=== PATIENT | female | born 1955 | race Caucasian/White ===

== ENCOUNTER 2019-07-28 10:27 | Outpatient (CLI) | payer OTHER, SELFPAY | END 2019-07-28 10:28 | disposition home or self-care (01) | PROVIDERS: Visit Provider Internal Medicine Pulmonary Disease | DX: J44.9 Chronic obstructive pulmonary disease, unspecified (principal) | CPT/HCPCS: 94060; 94726; 94729 ==

== ENCOUNTER 2020-08-09 10:59 | Outpatient (CLI) | payer OTHER, SELFPAY ==
[2020-08-09] VITALS (9 sets, daily range): PULSE 57–103; O2SAT 82–93
[2020-08-09 11:15] LABS: Base Excess ABG 11.2 mmol/L (0-2); Oxygen Content ABG 18.1 %vol (16.0-22.0); Oxyhemoglobin 92.4 % (94-100); PO2 ABG 68.8 mmHg (80-90); Total Hemoglobin 13.9 g/dL; pH ABG 7.24 (7.35-7.45)
[2020-08-09 11:26] LABS: Device NASAL CANNULA; Modified Allen's Test Pass; Site Drawn LEFT RADIAL
--- NOTE | 2020-08-09 15:15 | HOMEO2EVAL ---
Home Oxygen Evaluation RC: Home Oxygen (O2) Evaluation Start: 08/09/20 12:43 Freq: Status: Active Protocol: RPE Activity Type Activity Date Activity User E-Sign Co-Sign Detail Recorded Client Recorded Date Recorded By Document 08/09/20 11:12 EVONNE [id number] 08/09/20 15:10 EVONNE Document 08/09/20 11:14 EVONNE [id number] 08/09/20 15:10 EVONNE Document 08/09/20 11:16 EVONNE [id number] 08/09/20 15:10 EVONNE Document 08/09/20 11:18 EVONNE [id number] 08/09/20 15:10 EVONNE Document 08/09/20 11:20 EVONNE [id number] 08/09/20 15:10 EVONNE Document 08/09/20 11:22 EVONNE [id number] 08/09/20 15:10 EVONNE Document 08/09/20 11:25 EVONNE [id number] 08/09/20 15:10 EVONNE Document 08/09/20 11:28 EVONNE [id number] 08/09/20 15:10 EVONNE Document 08/09/20 11:30 EVONNE [id number] 08/09/20 15:10 EVONNE 08/09/20 08/09/20 08/09/20 11:12 11:14 11:16 Home O2 Evaluation Test Phase Resting Resting Resting Oxygen Delivery Room Air Nasal Cannula Nasal Cannula Oxygen Flow Rate (L/min) 1 2 Pulse Oximetry (90-100 %) 82 L 85 L 86 L Pulse Rate (60-100 beats/min) 101 H 102 H 103 H Activity Tolerance Good Fair Fair Rating of Perceived Dyspnea (PD) +1 Mild, +1 Mild, +2 Mild, Some Noticeable to Noticeable to Difficulty, the Participant the Participant Noticeable to but Not to an but Not to an the Observer Observer Observer Rate of Perceived Exertion (PE) 11 Fairly light 11 Fairly light 11 Fairly light Ambulation Distance (feet) Home Oxygen Evaluation Comments Treatment Charges O2 Evaluation - Outpatient 08/09/20 08/09/20 08/09/20 11:18 11:20 11:22 Home O2 Evaluation Test Phase Resting Exercise Exercise Oxygen Delivery Nasal Cannula Nasal Cannula Nasal Cannula Oxygen Flow Rate (L/min) 3 3 4 Pulse Oximetry (90-100 %) 93 86 L 85 L Pulse Rate (60-100 beats/min) 101 H 92 88 Activity Tolerance Fair Fair Fair Rating of Perceived Dyspnea (PD) +2 Mild, Some +2 Mild, Some +3 Moderate Difficulty, Difficulty, Difficulty, But Noticeable to Noticeable to Can Continue the Observer the Observer Rate of Perceived Exertion (PE) 11 Fairly light 12 13 Somewhat Hard Ambulation Distance (feet) 60 30 Home Oxygen Evaluation Comments Titrated 02 to desaturation on 3lpm then 4lpm.will walked 60 ft. increase O2 to Sp02 86%.will 5 lpm. increase to 4 lpm Treatment Charges 08/09/20 08/09/20 08/09/20 11:25 11:28 11:30 Home O2 Evaluation Test Phase Exercise Exercise Exercise Oxygen Delivery Nasal Cannula Nasal Cannula Nasal Cannula Oxygen Flow Rate (L/min) 5 6 7 Pulse Oximetry (90-100 %) 86 L 85 L 84 L Pulse Rate (60-100 beats/min) 57 L 58 L 60 Activity Tolerance Fair Fair Poor Rating of Perceived Dyspnea (PD) +3 Moderate +3 Moderate +3 Moderate Difficulty, But Difficulty, But Difficulty, But Can Continue Can Continue Can Continue Rate of Perceived Exertion (PE) 13 Somewhat 13 Somewhat 13 Somewhat Hard Hard Hard Ambulation Distance (feet) 30 60 30 Home Oxygen Evaluation Comments desaturation on desaturation on test ended. 5 lpm. will 6 lpm. will unable to increase to 6 increase to 7 maintain lpm lpm adequate saturation on 7 lpm n/c. Audible wheezing. Treatment Charges
== END 2020-08-09 11:00 | disposition home or self-care (01) ==
PROVIDERS: PCP Family Medicine; Visit Provider Internal Medicine Pulmonary Disease
DX: J44.9 Chronic obstructive pulmonary disease, unspecified (principal); R06.00 Dyspnea, unspecified
CPT/HCPCS: 36600; 82805; 94618

== ENCOUNTER 2020-10-24 11:13 | Outpatient (CLI) | payer MEDICARE, SELFPAY ==
[2020-10-24] VITALS (7 sets, daily range): PULSE 82–96; O2SAT 79–93
--- NOTE | 2020-10-24 12:30 | HOMEO2EVAL ---
Evaluation was performed at [facility] Home Oxygen Evaluation RC: Home Oxygen (O2) Evaluation Start: 10/24/20 12:13 Freq: Status: Active Protocol: RPE Activity Type Activity Date Activity User E-Sign Co-Sign Detail Recorded Client Recorded Date Recorded By Document 10/24/20 11:25 SJB [id number] 10/24/20 12:30 SJB Document 10/24/20 11:27 SJB [id number] 10/24/20 12:30 SJB Document 10/24/20 11:28 SJB [id number] 10/24/20 12:30 SJB Document 10/24/20 11:29 SJB [id number] 10/24/20 12:30 SJB Document 10/24/20 11:30 SJB [id number] 10/24/20 12:30 SJB Document 10/24/20 11:32 SJB [id number] 10/24/20 12:30 SJB Document 10/24/20 11:33 SJB [id number] 10/24/20 12:30 SJB 10/24/20 10/24/20 10/24/20 11:25 11:27 11:28 Home O2 Evaluation Test Phase Resting Resting Resting Oxygen Delivery Room Air Oxymizer Oxymizer Oxygen Flow Rate (L/min) 2 3 Pulse Oximetry (90-100 %) 79 L 81 L 86 L Pulse Rate (60-100 beats/min) 95 95 96 Activity Tolerance Rating of Perceived Dyspnea (PD) +2 Mild, Some +2 Mild, Some +2 Mild, Some Difficulty, Difficulty, Difficulty, Noticeable to Noticeable to Noticeable to the Observer the Observer the Observer Rate of Perceived Exertion (PE) Ambulation Distance (feet) Home Oxygen Evaluation Comments WILL START PATIENT ON OXYGEN AT 2 LPM Treatment Charges O2 Evaluation - Outpatient 10/24/20 10/24/20 10/24/20 11:29 11:30 11:32 Home O2 Evaluation Test Phase Resting Exercise Exercise Oxygen Delivery Oxymizer Oxymizer Oxymizer Oxygen Flow Rate (L/min) 4 4 6 Pulse Oximetry (90-100 %) 91 87 L 93 Pulse Rate (60-100 beats/min) 88 86 94 Activity Tolerance Good Good Rating of Perceived Dyspnea (PD) +2 Mild, Some +2 Mild, Some +2 Mild, Some Difficulty, Difficulty, Difficulty, Noticeable to Noticeable to Noticeable to the Observer the Observer the Observer Rate of Perceived Exertion (PE) 12 12 Ambulation Distance (feet) 75 150 Home Oxygen Evaluation Comments WILL BEGIN EXERCISE NOW Treatment Charges 10/24/20 11:33 Home O2 Evaluation Test Phase Exercise Oxygen Delivery Oxymizer Oxygen Flow Rate (L/min) 6 Pulse Oximetry (90-100 %) 93 Pulse Rate (60-100 beats/min) 82 Activity Tolerance Good Rating of Perceived Dyspnea (PD) +2 Mild, Some Difficulty, Noticeable to the Observer Rate of Perceived Exertion (PE) 12 Ambulation Distance (feet) 300 Home Oxygen Evaluation Comments PT WALKED PUSHING WHEELCHAIR APPROX 300 FT. PT WAS INCREASED TO 6 LPM USING OXYMIZER NASAL CANNUAL AND MAINTAINED AN SP02 OFBETWEEN 92-93%. TOLERATED WELL, TALKING THE WHOLE TIME. Treatment Charges
== END 2020-10-24 11:14 | disposition home or self-care (01) ==
LOC: CHSCARD 11:18
PROVIDERS: PCP Family Medicine; Visit Provider Internal Medicine Pulmonary Disease
DX: R06.02 Shortness of breath (principal)
CPT/HCPCS: 94618

== ENCOUNTER 2021-04-11 09:02 | Inpatient (IN) | payer MEDICARE, SELFPAY ==
[2021-04-11] VITALS (16 sets, daily range): BP systolic 136–189; BP diastolic 73–108; PULSE 92–105; RESP 20–28; TEMP 36.3–36.6; O2SAT 88–100; BMI 18.6
--- NOTE | ~2021-04-11 | XR_ITS ---
XR chest 2V 04/12/2021 13:08 Indication: Hypoxia. Decreased oxygen with exertion. Cough. Procedure: 2 view chest Comparison: Comparison to multiple prior studies sequentially, with oldest reviewed study dated 06/10. Findings: Heart size normal. Bibasilar airspace disease may represent atelectasis or pneumonia. Small pleural effusions. The lungs are hyperinflated which is consistent with, but not diagnostic of chron ic obstructive pulmonary disease. Impression: 1: Bibasilar airspace disease, atelectasis versus pneumonia. 2: Small pleural effusions. Reviewed, dictated and finalized at location A. ITY TECH Impression: 1: Bibasilar airspace disease, atelectasis versus pneumonia. 2: Small pleural effusions.
--- NOTE | ~2021-04-11 | CT_ITS ---
EXAMINATION: CTA chest PE protocol EXAM DATE: 04/11/2021 11:09 INDICATION: Dyspnea with elevated D-dimer dyspnea, SOB x2wks, elevated D-dimer 0.97, emphysema. TECHNIQUE: Spiral CTA of the chest (pulmonary arteries) was performed with 100 cc Omnipaque 350 intr avenous contrast injection. Images were acquired during the pulmonary arterial phase. Coronal maxi mum intensity projection 3D-reconstructions were created by the technologist on dedicated workstation . Axial, coronal and sagittal reformatted images were reviewed. The dose-length product (DLP) for t his examination was 150.04 mGy-cm. The exposure was tailored according to patient size (auto mA exp osure control), and iterative reconstruction (ASIR) was used as additional dose reduction technique. Comparison is made to prior examination from 2013. FINDINGS: Pulmonary arteries are well opacified and without intraluminal filling defects. No thora cic aortic dissection. There is moderate emphysema and hyperinflation. There is small amount of endo bronchial debris in the dependent aspect. Linear lingular and left basilar subsegmental scarring or a telectasis. The lungs are otherwise clear. Small left pleural effusion. There is no mediastinal, hi lar or axillary lymphadenopathy. There is no pneumothorax. Heart normal in size. There is moder ate coronary arterial calcification, arterial sclerosis. Upper abdomen is unremarkable. There is t horacic spondylosis without osteoblastic or osteolytic lesions identified. IMPRESSION: 1. No pulmonary emboli. 2. Linear left basilar scarring/atelectasis. 3. Small left pleural effusion. 4. Moderate emphysema. 5. Small endobronchial debris. Reviewed, dictated and finalized at location A. UDER
--- NOTE | 2021-04-11 09:07 | ECG_ITS ---
Measurements Intervals [place] Rate: 99 P: 81 [place]: 159 QRS: 68 QRSD: 72 T: 76 QT: 325 QTc: 418 Interpretive Statements SINUS RHYTHM POSSIBLE RIGHT ATRIAL ENLARGEMENT POSSIBLE LEFT ATRIAL ENLARGEMENT RSR' IN V1 OR V2, PROBABLY NORMAL VARIANT BORDERLINE R WAVE PROGRESSION, ANTERIOR LEADS BASELINE WANDER- V2-V4, V6 BORDERLINE ECG Electronically Signed On 04-11-2021 9:49:45 MIXING MACHINE FEEDER by Ronny Boland D.O.
[2021-04-11] MEDS: IPRATROPIUM 0.5 MG/ALBUTEROL SULFATE 2.5 MG AMPUL.NEB 3 ML INHALATION ×3 (09:15→17:34)
[2021-04-11] MEDS: methylPREDNISolone SOD SUCC 125 MG VIAL IV PUSH (09:35)
[2021-04-11 09:45] LABS: Add Urine Microscopic? YES; Appearance Urine Clear (Clear); Bilirubin Urine Negative (Negative); Blood Urine Negative (Negative); Color Urine Light Yellow (Yellow); Glucose Urine UA Negative (Negative); Ketones Urine Negative (Negative); Leukocyte Esterase Ur Negative (Negative); Nitrate Urine Negative (Negative); Protein Urine Trace (Negative); Specific Grav Ur 1.015 (1.010-1.020); Urobilinogen Urine 0.2 mg/dL (0.2-1.0)
[2021-04-11 10:00] LABS: Base Excess ABG 16.2 mmol/L (0-2); HCO3 ABG 46.6 mmol/L (23-29); Oxygen Content ABG 18.7 %vol (16.0-22.0); Oxygen Saturation ABG 97.4 % (95-97); Oxyhemoglobin 96.5 % (94-100); PO2 ABG 103.1 mmHg (80-90); Total Hemoglobin 13.7 g/dL (12.0-18.0); pH ABG 7.34 (7.35-7.45)
[2021-04-11 10:01] LABS: RBC Urine None seen /hpf (0-2); Squamous Epithelial Cell Urine Rare /hpf (Few); WBC Urine None seen /hpf (0-3)
[2021-04-11 10:02] LABS: Bacteria Urine Trace /hpf
[2021-04-11 10:03] LABS: Basophils Absolute Auto 0.04 K/mm3 (0.00-0.10); Basophils Percent Auto 0.8 % (0.0-1.0); Device NASAL CANNULA; Eosinophils Absolute Auto 0.12 K/mm3 (0.02-0.50); Eosinophils Percent Auto 2.5 % (1.0-6.0); Hematocrit 45.9 % (35.0-42.0); Hemoglobin 14.1 g/dL (11.7-13.8); Immature Granulocyte Absolute 0.01 K/mm3 (0.00-0.00); Immature Granulocyte Percent A 0.2 % (0.0-0.0); Lymphocytes Absolute Auto 0.51 K/mm3 (1.10-4.50); Lymphocytes Percent Auto 10.8 % (18.0-42.0); Mean Corpuscular HGB Conc 30.7 g/dL (32.0-36.0); Mean Corpuscular Hemoglobin 31.5 pg (27.0-31.0); Mean Corpuscular Volume 102.7 fL (78.0-102.0); Mean Platelet Volume 10.8 fl (9.2-11.8); Modified Allen's Test Pass; Monocytes Absolute Auto 0.61 K/mm3 (0.10-0.90); Monocytes Percent Auto 12.9 % (2.0-11.0); Neutrophils Absolute Auto 3.4 K/mm3 (1.7-7.2); Neutrophils Percent Auto 72.8 % (50.0-70.0); PCO2 ABG 88.5 mmHg (35-45); Platelet Count Result 223 K/mm3 (150-420); Red Blood Count 4.47 M/mm3 (4.20-5.40); Red Cell Distribution Width 11.9 % (11.6-14.4); Site Drawn RIGHT RADIAL; White Blood Count 4.7 K/mm3 (4.8-10.8)
[2021-04-11 10:13] LABS: Influenza A QL RT-PCR Negative (Negative); Influenza B QL RT-PCR Negative (Negative); SARS-CoV-2 RNA PCR Negative (Negative)
[2021-04-11 10:15] LABS: Partial Thromboplastin Time 29.3 SEC (23.90-30.70)
[2021-04-11 10:18] LABS: D Dimer 0.97 mg/L (0.19-0.50)
[2021-04-11 10:22] LABS: Alanine Aminotransferase 31 U/L (14-59); Albumin Level 4.7 g/dL (3.4-5.0); Alkaline Phosphatase 92 U/L (46-116); Aspartate Amino Transferase 26 U/L (15-37); Bilirubin,Total 0.6 mg/dL (0.00-1.00); Blood Urea Nitrogen 7 mg/dL (7-18); Calcium 9.5 mg/dL (8.5-10.1); Chloride 83 mmol/L (98-108); Estimated CRCL calculation 66 ml/min; Estimated Glomerular Filt Rate > 60; Glucose 120 mg/dL (70-99); Magnesium 1.9 mg/dL (1.8-2.4); NT Pro B Type Natriuretic Pept 177 pg/mL (0-125); Osmolality Calculated 273 mOsm/kg (285-295); Potassium 3.9 mmol/L (3.5-5.1); Sodium 132 mmol/L (136-145); Total Protein 8.9 g/dL (6.4-8.2); Troponin I 25.3 ng/L (0.00-60.4)
[2021-04-11 10:27] LABS: Carbon Dioxide > 45 mmol/L (21-32)
[2021-04-11] MEDS: SODIUM CHLORIDE 0.9% IV 1,000 ML 150 ML IV CONT (11:24)
--- NOTE | 2021-04-11 11:34 | ED.SOB ---
HPI - SOB/Dyspnea General Chief Complaint: Shortness of Breath/Dyspnea Stated Complaint: AMBULANCE Source: patient and EMS Mode of arrival: EMS Limitations: no limitations History of Present Illness HPI Narrative: this is 65-year-old female with a history of COPD and hypertension presents via EMS after she called because of increasing shortness of breath. The patient has been having increasing shortness of breath over the last 2 weeks and gradually has intensified is not vaccinated with COVID but has minimal contact according to patient, currently there is some chest congestion with no audible wheezing and mild nonproductive cough with no fevers no chills no chest pain no abdominal pain no nausea vomiting. MD elicited complaint: shortness of breath Pertinent past history: COPD Onset (ago): week(s) Context: anxiety Timing: intermittent Severity: moderate Exacerbating factors: nothing Relieving factors: oxygen, bronchodilators and medication Related Data Home Medications Medication Instructions Recorded Confirmed budesonide 0.5 mg INHALATION DAILY 04/11/21 04/11/21 Allergies Allergy/AdvReac Type Severity Reaction Status Date / Time No Known Allergies Allergy Verified 03/19/21 12:04 Review of Systems Review of Systems: All systems reviewed & are unremarkable except as noted in HPI and below PMFSH Past Medical History Medical History COPD (chronic obstructive pulmonary disease) Encounter for vaccination Hypertension Surgical History Surgical History No history of previous surgery Family History Family History Other Family history of type 2 diabetes mellitus Social History Social History Smoking status: Former smoker Tobacco type: cigarettes Additional smoking assessment comments: Quit 2015. 40 pack-year history. Exam Const: General: no acute distress Orientation/consciousness: patient oriented x3 HENMT: Head: normal to inspection Eyes: Conjunctivae: conjunctivae normal Pupils: Equal, round and reactive pupils present EOM: EOMs intact bilaterally Direct Ophthalmoscopy: no photophobia Neck: Neck: normal visual inspection, no lymphadenopathy and no meningeal signs Chest: Chest palpation & inspection: normal inspection of the chest Resp: Effort & Inspection: normal respiratory effort Auscultation: diminished lung sounds Cardio: Rate: regular rate Rhythm: regular rhythm GI: GI Palp: Yes Soft to palpation : General: Yes no CVA tenderness Urinary Catheter: Urinary Catheter: patent and draining Back/Spine/Pelvis: Back: no CVA tenderness Skin: General skin exam: normal color Rashes: no rashes Neuro: General: patient oriented x3 and moves all extremities Extrem: General: normal to inspection and no pedal edema Psych: Mental Status: mental status grossly normal Affect: normal affect Course Course Emergency Course: Patient presents via EMS with increasing shortness of breath a chest CTA was ordered secondary to elevated D-dimer which shows no pulmonary embolism does show moderate emphysema with a small left pleural effusion, labs were reviewed with patient patient was given nebulizer treatment started on oxygen and given Solu-Medrol IV. Vital Signs Vital signs: Vital Signs Temperature 36.6 C 04/11/21 09:02 Pulse Rate 98 04/11/21 09:02 Respiratory Rate 22 H 04/11/21 09:02 Blood Pressure 184/108 H 04/11/21 09:02 Pulse Oximetry 96 04/11/21 09:02 Temperature 36.4 C 04/11/21 10:31 Pulse Rate 102 H 04/11/21 10:31 Respiratory Rate 22 H 04/11/21 10:31 Blood Pressure 189/89 H 04/11/21 10:31 Pulse Oximetry 96 04/11/21 10:06 MDM - SOB/Dyspnea Lab Data Result diagrams: 04/11/21 09:39 04/11/21 09:39
--- NOTE | 2021-04-11 12:15 | PC.NURSE ---
Patient admitted to room 205 from ED for observation following COPD exacerbation.
--- NOTE | 2021-04-11 12:23 | PM.IMHP ---
H&P: HPI History of Present Illness Date/Time: 04/11/21 12:23 this is a 65-year-old female presented to our emergency department with complaints of worsening shortness of breath .patient has a past medical history of end-stage. At COPD and hypertension patient for approximately 1 week her shortness of breath has become recently worse patient notes that while she was at home she was unable to ambulate from her chair to the restroom which indicated she needs to come to our emergency department. Patient does use a nebulizer at home she notes she did not increase the use of her nebulizer while at home. Vital signs 162/81, 96, 20, 97.9, 92% nasal cannula 3 L, WBCs 4.7, hemoglobin 14.1, hematocrit 45.9, platelets 223, D-dimer 0.97, pH 7.34, CO2 88.5, O2 103.1 bicarb 46.6, sodium 132, potassium 3.9, creatinine 0.49, BUN 7, glucose 120, liver function test within normal limits, troponin 25.3, BUN 177, Covid and influenza negative, CTA negative for PE indicate moderate emphysema, EKG sinus rhythm with a heart rate of 99. Patient notes that her condition has improved she still experience shortness of breath. Admitted for COPD exercabation Chief Complaint: Shortness of breath Review of Systems Review of Systems: A 14 organ system Review of Systems was performed and pertinent positives included in the HPI, otherwise remaining ROS is negative. [facility] Past Medical History Medical History COPD (chronic obstructive pulmonary disease) Encounter for vaccination Hypertension Surgical History Surgical History No history of previous surgery Family History Family History Other Family history of type 2 diabetes mellitus Social History Social History Smoking status: Former smoker Tobacco type: cigarettes Second hand tobacco smoke exposure: Yes Additional smoking assessment comments: Quit 2015. 40 pack-year history. Alcohol intake: current Drinks per week: 12 Substance use: never Spiritual care concerns: No Meds Home Medications and Allergies Home Medications Medication Instructions Recorded Confirmed Type albuterol sulfate 90 mcg/actuation 2 inh INHALATION Q4H PRN #8.5 g 03/19/21 04/11/21 Rx aerosol inhaler diltiazem HCl 420 mg capsule,24 420 mg PO DAILY #90 cap 03/19/21 04/11/21 Rx hr,extended release formoterol fumarate 20 mcg/2 mL 20 mcg INHALATION BID #120 ml 03/19/21 04/11/21 Rx solution for nebulization losartan 100 mg tablet See Rx Instructions .ROUTE 03/19/21 04/11/21 Rx .COMPLEX #90 tablet theophylline 200 mg 200 mg PO DAILY #60 cap 03/19/21 04/11/21 Rx capsule,extended release 24 hr umeclidinium 62.5 mcg/actuation 1 inh INHALATION DAILY #30 ea 03/19/21 04/11/21 Rx blister powder for inhalation budesonide 0.5 mg INHALATION DAILY 04/11/21 04/11/21 History Allergies Allergy/AdvReac Type Severity Reaction Status Date / Time No Known Allergies Allergy Verified 03/19/21 12:04 Vital Signs Vital Signs - 24 hr 04/11/21 09:02 04/11/21 09:15 04/11/21 09:16 Temperature 97.8 F Pulse Rate 98 100 98 Respiratory Rate 22 H 28 H Blood Pressure 184/108 H Pulse Oximetry 96 100 04/11/21 09:23 04/11/21 10:06 04/11/21 10:31 Temperature 97.6 F Pulse Rate 99 102 H Respiratory Rate 22 H 22 H Blood Pressure 189/89 H Pulse Oximetry 100 96 04/11/21 11:41 Temperature 97.6 F Pulse Rate 96 Respiratory Rate 22 H Blood Pressure 170/80 H Pulse Oximetry 93 Exam Narrative: GENERAL: This is a well-nourished, well-developed patient, in no apparent distress. HEAD: normocephalic, atraumatic. EYES: PERRL. Sclera clear/white. Vision is grossly intact. EARS: External ears normal, auditory canals clear and without drainage, TMs normal without perforation. Heari
[2021-04-11] MEDS: SODIUM CHLORIDE 0.9% IV 1,000 ML 100 ML IV CONT ×2 (13:08→20:54)
[2021-04-11] MEDS: BENZONATATE 100 MG CAPSULE 200 MG PO ×2 (13:09→16:59)
[2021-04-11] MEDS: methylPREDNISolone SOD SUCC 40 MG VIAL IV PUSH ×2 (15:18→21:30)
--- NOTE | 2021-04-11 16:57 | PC.NURSE ---
Patient is voiding but missing the collection hat. Unable to measure accurately.
[2021-04-11] MEDS: ENOXAPARIN 40 MG/0.4 ML SYRINGE SUB-Q (16:59)
[2021-04-11] MEDS: guaiFENesin 12 HR 600 MG TABCR 1200 MG PO (21:30)
[2021-04-12] VITALS (9 sets, daily range): BP systolic 163–165; BP diastolic 77–100; PULSE 83–108; RESP 18–22; TEMP 36.1–36.3; O2SAT 90–100
[2021-04-12] MEDS: IPRATROPIUM 0.5 MG/ALBUTEROL SULFATE 2.5 MG AMPUL.NEB 3 ML INHALATION ×3 (00:27→12:16)
[2021-04-12] MEDS: methylPREDNISolone SOD SUCC 40 MG VIAL IV PUSH ×2 (03:51→08:28)
[2021-04-12 05:29] LABS: Hematocrit 37.4 % (35.0-42.0); Hemoglobin 11.9 g/dL (11.7-13.8); Mean Corpuscular HGB Conc 31.8 g/dL (32.0-36.0); Mean Corpuscular Hemoglobin 32.8 pg (27.0-31.0); Mean Platelet Volume 10.7 fl (9.2-11.8); Platelet Count Result 184 K/mm3 (150-420); Red Blood Count 3.63 M/mm3 (4.20-5.40); Red Cell Distribution Width 11.9 % (11.6-14.4); White Blood Count 2.6 K/mm3 (4.8-10.8)
[2021-04-12 05:57] LABS: Alanine Aminotransferase 25 U/L (14-59); Albumin Level 3.3 g/dL (3.4-5.0); Alkaline Phosphatase 66 U/L (46-116); Anion Gap 0 mmol/L (8-16); Aspartate Amino Transferase 17 U/L (15-37); Bilirubin,Total 0.2 mg/dL (0.00-1.00); Blood Urea Nitrogen 8 mg/dL (7-18); Calcium 8.4 mg/dL (8.5-10.1); Carbon Dioxide 44 mmol/L (21-32); Chloride 93 mmol/L (98-108); Estimated CRCL calculation 67 ml/min; Estimated Glomerular Filt Rate > 60; Glucose 233 mg/dL (70-99); Osmolality Calculated 289 mOsm/kg (285-295); Potassium 3.8 mmol/L (3.5-5.1); Sodium 137 mmol/L (136-145); Total Protein 6.7 g/dL (6.4-8.2)
[2021-04-12 06:01] LABS: Band Neutrophils Percent 1 % (0-6); Lymphocytes Absolute Manual 0.15 K/mm3 (1.1-4.5); Lymphocytes Percent Manual 6 % (18-44); Monocytes Percent Manual 4 % (3-9); Neutrophils Absolute Manual 2.34 K/mm3 (1.7-7.2); Neutrophils Percent Manual 89 % (46-73); Platelet Estimate Adequate (Adequate); Total Cells Counted 100
[2021-04-12] MEDS: SODIUM CHLORIDE 0.9% IV 1,000 ML 100 ML IV CONT (06:28)
[2021-04-12 08:06] LABS: Base Excess ABG 14.8 mmol/L (0-2); Oxygen Content ABG 17.5 %vol (16.0-22.0); Oxygen Saturation ABG 91.4 % (95-97); Oxyhemoglobin 90.9 % (94-100); PO2 ABG 62.3 mmHg (80-90); Total Hemoglobin 13.7 g/dL (12.0-18.0); pH ABG 7.37 (7.35-7.45)
[2021-04-12 08:12] LABS: PCO2 ABG 78.2 mmHg (35-45)
[2021-04-12 08:13] LABS: Device NASAL CANNULA; Modified Allen's Test Pass; Site Drawn RIGHT RADIAL
[2021-04-12] MEDS: BENZONATATE 100 MG CAPSULE 200 MG PO ×2 (08:26→12:23)
[2021-04-12] MEDS: guaiFENesin 12 HR 600 MG TABCR 1200 MG PO (08:27)
[2021-04-12] MEDS: LOSARTAN POTASSIUM 50 MG TABLET 100 MG PO (08:27)
[2021-04-12] MEDS: UMECLIDINIUM BROMIDE 62.5 MCG ELLIPTA 1 PUFF INHALATION (08:28)
[2021-04-12] MEDS: THEOPHYLLINE ANHYDROUS 100 MG CAP.ER.24H 200 MG PO (08:28)
--- NOTE | 2021-04-12 12:59 | PCPTNOTE ---
No Care Plan initiated due to patient being discharged today.
--- NOTE | 2021-04-12 14:48 | P.DS_ITS ---
DS: Admitting Diagnosis Discharge Date 04/12/2021 <TIFFANIE Lemus - Last Filed: 04/13/21 15:00> Admitting Diagnosis COPD exacerbation <TIFFANIE Lemus - Last Filed: 04/13/21 15:00> DS: Discharge Diagnosis Discharge Diagnosis (1) Chronic respiratory failure: Qualifiers: Respiratory failure complication: hypoxia and hypercapnia Qualified Code(s): J96.11 - Chronic respiratory failure with hypoxia; J96.12 - Chronic respiratory failure with hypercapnia <TIFFANIE Lemus - Last Filed: 04/13/21 15:00> Code(s): J96.10 - Chronic respiratory failure, unspecified whether with hypoxia or hypercapnia <TIFFANIE Lemus - Last Filed: 04/13/21 15:00> Status: Acute <TIFFANIE Lemus - Last Filed: 04/13/21 15:00> Assessment and Plan: * Primary Respiratory Acidosis, Chronic, with: Secondary Metabolic Alkalosis * CTA indicates small left pleural effusion with moderate emphysema * Patient tachypnea respiratory rate 22 * ABG CO2 88.5 if patient condition worsened will placed on BiPAP <TIFFANIE Lemus - Last Filed: 04/13/21 15:00> (2) End stage COPD: Code(s): J44.9 - Chronic obstructive pulmonary disease, unspecified <TIFFANIE Lemus - Last Filed: 04/13/21 15:00> Status: Deleted <TIFFANIE Lemus - Last Filed: 04/13/21 15:00> Assessment and Plan: * Continue inhaler along with Solu-Medrol and supplementary oxygen as needed * Patient on continuous oxygen 4 L at rest 6 with ambulation per rvda master certified rv technician notes * Currently on 3 L nasal cannula <TIFFANIE Lemus - Last Filed: 04/13/21 15:00> (3) History of tobacco abuse: Code(s): Z87.891 - Personal history of nicotine dependence <TIFFANIE Lemus - Last Filed: 04/13/21 15:00> Status: Acute <TIFFANIE Lemus - Last Filed: 04/13/21 15:00> Assessment and Plan: * Educated on cessation * Nicotine patch <Mario OnealMORGANHattieKwabena - Last Filed: 04/13/21 15:00> (4) Hypertension: Qualifiers: Hypertension type: unspecified Qualified Code(s): I10 - Essential (primary) hypertension <Mario Landa RANDA OnealRipKwabena - Last Filed: 04/13/21 15:00> Code(s): I10 - Essential (primary) hypertension <Mario Oneal KIMKwabena - Last Filed: 04/13/21 15:00> Status: Chronic <Mario OnealMORGANHattieKwabena - Last Filed: 04/13/21 15:00> Assessment and Plan: * Blood pressure 170/80 elevated * Vital signs as ordered Will adjust medication as needed * Continue Cardizem and losartan <Mario NettlesRANDA VermaLatrice - Last Filed: 04/13/21 15:00> (5) Elevated d-dimer: Code(s): R79.89 - Other specified abnormal findings of blood chemistry <Mario OnealMORGANHattieKwabena - Last Filed: 04/13/21 15:00> Status: Deleted <Mario OnealMORGANHattieKwabena - Last Filed: 04/13/21 15:00> Assessment and Plan: * Elevated D-dimer * CT does not indicate PE negative for Homans <Mario Oneal TIFFANIE - Last Filed: 04/13/21 15:00> DS: Summary Hospital Course Reason for hospitalization: COPD <Mario Landa MORGAN OnealHattieKwabena - Last Filed: 04/13/21 15:00> Hospital Course: this is a 65-year-old female presented to our emergency department with complaints of worsening shortness of breath .patient has a past medical history of end-stage. At COPD and hypertension patient for approximately 1 week her shortness of breath has become recently worse patient notes that while she was at home she was unable to ambulate from her chair to the restroom which indicated she
--- NOTE | 2021-04-12 14:48 | PM.DS ---
DS: Admitting Diagnosis Discharge Date 04/12/2021 <TIFFANIE Lemus - Last Filed: 04/13/21 15:00> Admitting Diagnosis COPD exacerbation <TIFFANIE Lemus - Last Filed: 04/13/21 15:00> DS: Discharge Diagnosis Discharge Diagnosis (1) Chronic respiratory failure: Qualifiers: Respiratory failure complication: hypoxia and hypercapnia Qualified Code(s): J96.11 - Chronic respiratory failure with hypoxia; J96.12 - Chronic respiratory failure with hypercapnia <TIFFANIE Lemus - Last Filed: 04/13/21 15:00> Code(s): J96.10 - Chronic respiratory failure, unspecified whether with hypoxia or hypercapnia <TIFFANIE Lemus - Last Filed: 04/13/21 15:00> Status: Acute <TIFFANIE Lemus - Last Filed: 04/13/21 15:00> Assessment and Plan: Primary Respiratory Acidosis, Chronic, with: Secondary Metabolic Alkalosis CTA indicates small left pleural effusion with moderate emphysema Patient tachypnea respiratory rate 22 ABG CO2 88.5 if patient condition worsened will placed on BiPAP <TIFFANIE Lemus - Last Filed: 04/13/21 15:00> (2) End stage COPD: Code(s): J44.9 - Chronic obstructive pulmonary disease, unspecified <TIFFANIE Lemus - Last Filed: 04/13/21 15:00> Status: Deleted <TIFFANIE Lemus - Last Filed: 04/13/21 15:00> Assessment and Plan: Continue inhaler along with Solu-Medrol and supplementary oxygen as needed Patient on continuous oxygen 4 L at rest 6 with ambulation per turfgrass management professor notes Currently on 3 L nasal cannula <TIFFANIE Lemus - Last Filed: 04/13/21 15:00> (3) History of tobacco abuse: Code(s): Z87.891 - Personal history of nicotine dependence <TIFFANIE Lemus - Last Filed: 04/13/21 15:00> Status: Acute <TIFFANIE Lemus - Last Filed: 04/13/21 15:00> Assessment and Plan: Educated on cessation Nicotine patch <Mario Oneal TIFFANIE - Last Filed: 04/13/21 15:00> (4) Hypertension: Qualifiers: Hypertension type: unspecified Qualified Code(s): I10 - Essential (primary) hypertension <Mario Oneal TIFFANIE - Last Filed: 04/13/21 15:00> Code(s): I10 - Essential (primary) hypertension <Mario Oneal TIFFANIE - Last Filed: 04/13/21 15:00> Status: Chronic <Mario Oneal TIFFANIE - Last Filed: 04/13/21 15:00> Assessment and Plan: Blood pressure 170/80 elevated Vital signs as ordered Will adjust medication as needed Continue Cardizem and losartan <Mario Oneal TIFFANIE - Last Filed: 04/13/21 15:00> (5) Elevated d-dimer: Code(s): R79.89 - Other specified abnormal findings of blood chemistry <Mario Oneal TIFFANIE - Last Filed: 04/13/21 15:00> Status: Deleted <Mario Oneal TIFFANIE - Last Filed: 04/13/21 15:00> Assessment and Plan: Elevated D-dimer CT does not indicate PE negative for Homans <Mario Oneal TIFFANIE - Last Filed: 04/13/21 15:00> DS: Summary Hospital Course Reason for hospitalization: COPD <Mario OnealRANDARipKwabena - Last Filed: 04/13/21 15:00> Hospital Course: this is a 65-year-old female presented to our emergency department with complaints of worsening shortness of breath .patient has a past medical history of end-stage. At COPD and hypertension patient for approximately 1 week her shortness of breath has become recently worse patient notes that while she was at home she was unable to ambulate from her chair to the restroom which indicated she needs to come to our emergency department. Patient does use a nebulizer at home she notes she did not increase the use of her nebulizer while at home. Patient has decided that she should be discharged to a [facility]. The patient denies CP, palpitation, extremity numbness, lightheadedness, dizziness, constipation, diarrhea, chills, o
--- NOTE | 2021-04-12 15:40 | PC.NURSE ---
Patient discharged to [facility] transported via per [facility] staff. Daughter accompanied patient to long-term with all personal items bagged and taken. IV site discontinued and removed prior to discharge. Report called and given to Radha nursing at [facility].
--- NOTE | 2021-04-16 10:40 | PC.NURSE ---
skilled nursing nurse states they received and understood the discharge instructions.
== END 2021-04-12 15:40 | DRG 191 ==
LOC: CHSED 11:38 → CHS2ND 11:49
PROVIDERS: Nurse Practitioner; Admitting Provider Emergency Medicine; Emergency Provider Emergency Medicine; PCP Family Medicine; Visit Provider Emergency Medicine
DX: J44.1 Chronic obstructive pulmonary disease with (acute) exacerbation (principal); I10 Essential (primary) hypertension; Z87.891 Personal history of nicotine dependence; Z20.822 Contact with and (suspected) exposure to COVID-19; J96.11 Chronic respiratory failure with hypoxia; J96.12 Chronic respiratory failure with hypercapnia; R79.89 Other specified abnormal findings of blood chemistry
CPT/HCPCS: 36415; 36600; 71046; 71275; 80053; 81001; 82805; 83735; 83880; 84484; 85025; 85380; 85610; 85730; 87502; 93005; 94640; 96374; 97161; 97165; 99285; A9270; C9803; J0456; J1650; J2920; J2930; J7030; Q9967; U0003; U0005

== ENCOUNTER 2021-05-04 03:23 | Inpatient (IN) | payer MEDICARE, SELFPAY ==
[2021-05-04] VITALS (24 sets, daily range): BP systolic 119–195; BP diastolic 64–104; PULSE 58–114; RESP 15–30; TEMP 36.1–36.6; O2SAT 87–100
--- NOTE | ~2021-05-04 | XR_ITS ---
XR chest 1V portable DATE: 05/04/2021 04:02 INDICATION: Dyspnea. History of COPD and congestive heart failure TECHNIQUE: Portable upright AP chest on 05/04/2021 at 0 400 and COMPARISON: 05/09/2021 2 view chest FINDINGS: There is bilateral hyperinflation and relative flattening the diaphragm consistent with F[employer] D. There is mild patchy infiltrate in the left upper lung and left lower lung Cardiomegaly. Aortic calcification. Diffuse osteopenia. IMPRESSION: Mild patchy left upper and lower lung infiltrates COPD Cardiac megaly Aortic atherosclerosis Osteopenia Reviewed, dictated and finalized at location A. ER HAND
--- NOTE | 2021-05-04 03:29 | ECG_ITS ---
Measurements Intervals [place] Rate: 105 P: 66 [place]: 155 QRS: 16 QRSD: 78 T: 54 QT: 311 QTc: 411 Interpretive Statements SINUS TACHYCARDIA BASELINE ARTIFACT- I, II, III, AVL BORDERLINE ECG Electronically Signed On 05-04-2021 7:50:48 HELICOPTER UTILITY AIRCREWMAN by Ronny Boland D.O.
[2021-05-04 03:50] LABS: Base Excess ABG 24.1 mmol/L (0-2); Oxygen Saturation ABG 94.1 % (95-97); Oxyhemoglobin 93.4 % (94-100); PO2 ABG 78.4 mmHg (80-90); Total Hemoglobin 12.9 g/dL (12.0-18.0); pH ABG 7.22 (7.35-7.45)
[2021-05-04 03:52] LABS: PCO2 ABG 147.7 mmHg (35-45)
[2021-05-04 03:53] LABS: Device ROOM AIR; Modified Allen's Test Pass; Site Drawn LEFT RADIAL
[2021-05-04 03:54] LABS: Basophils Absolute Auto 0.02 K/mm3 (0.00-0.10); Basophils Percent Auto 0.3 % (0.0-1.0); Eosinophils Absolute Auto 0.02 K/mm3 (0.02-0.50); Eosinophils Percent Auto 0.3 % (1.0-6.0); Hematocrit 42.3 % (35.0-42.0); Hemoglobin 12.9 g/dL (11.7-13.8); Immature Granulocyte Absolute 0.03 K/mm3 (0.00-0.00); Immature Granulocyte Percent A 0.4 % (0.0-0.0); Lymphocytes Absolute Auto 0.46 K/mm3 (1.10-4.50); Lymphocytes Percent Auto 6.9 % (18.0-42.0); Mean Corpuscular HGB Conc 30.5 g/dL (32.0-36.0); Mean Corpuscular Hemoglobin 32.6 pg (27.0-31.0); Mean Corpuscular Volume 106.8 fL (78.0-102.0); Mean Platelet Volume 10.2 fl (9.2-11.8); Monocytes Absolute Auto 0.87 K/mm3 (0.10-0.90); Neutrophils Absolute Auto 5.3 K/mm3 (1.7-7.2); Neutrophils Percent Auto 79.1 % (50.0-70.0); Platelet Count Result 200 K/mm3 (150-420); Red Blood Count 3.96 M/mm3 (4.20-5.40); Red Cell Distribution Width 11.9 % (11.6-14.4); White Blood Count 6.7 K/mm3 (4.8-10.8)
[2021-05-04] MEDS: IPRATROPIUM 0.5 MG/ALBUTEROL SULFATE 2.5 MG AMPUL.NEB 3 ML INHALATION ×4 (04:02→18:51)
[2021-05-04] MEDS: methylPREDNISolone SOD SUCC 40 MG VIAL 80 MG IV PUSH (04:05)
[2021-05-04] MEDS: ALBUTEROL SULFATE NEB 2.5 MG/3 ML INH INHALATION (04:08)
[2021-05-04 04:25] LABS: Alanine Aminotransferase 34 U/L (14-59); Albumin Level 4.2 g/dL (3.4-5.0); Alkaline Phosphatase 73 U/L (46-116); Aspartate Amino Transferase 22 U/L (15-37); Bilirubin,Total 0.3 mg/dL (0.00-1.00); Blood Urea Nitrogen 10 mg/dL (7-18); Calcium 9.6 mg/dL (8.5-10.1); Chloride 89 mmol/L (98-108); Estimated Glomerular Filt Rate > 60; Glucose 111 mg/dL (70-99); Magnesium 1.9 mg/dL (1.8-2.4); NT Pro B Type Natriuretic Pept 162 pg/mL (0-125); Osmolality Calculated 280 mOsm/kg (285-295); Potassium 4.5 mmol/L (3.5-5.1); Sodium 135 mmol/L (136-145); Total Protein 7.8 g/dL (6.4-8.2); Troponin I 30.6 ng/L (0.00-60.4)
[2021-05-04 04:27] LABS: Carbon Dioxide > 45 mmol/L (21-32)
--- NOTE | 2021-05-04 04:45 | PC.NURSE ---
Pt continues to have labored and difficulty breathing, alexandro p getting up to use commode, pt. placed back to bed and put on nonreb mask due to SPO2 decreasing to 81%. Once pt placed back to bed and encouraged to relax, SPO2 slowly increased to 92%.
--- NOTE | 2021-05-04 04:54 | ED.SOB ---
HPI - SOB/Dyspnea General Chief Complaint: Shortness of Breath/Dyspnea Stated Complaint: sob Time Seen by Provider: 05/04/21 04:54 Source: patient Mode of arrival: wheelchair Limitations: clinical condition History of Present Illness HPI Narrative: 65-year-old woman with a history of severe COPD brought to the emergency department by EMS from the long term for increased shortness of breath on waking tonight. She states that her symptoms started 2 weeks ago. she denies fever, productive cough, hemoptysis, chest pain, leg pain, ankle swelling, and sick contacts. She states that she has had the initial COVID vaccination. MD elicited complaint: shortness of breath Pertinent past history: COPD Onset (ago): week(s) (2) Timing: constant and progressively worsening Severity: severe Exacerbating factors: lying flat, exertion and movement Relieving factors: nothing Known history of: COPD Associated symptoms: denies other symptoms Treatment prior to arrival: oxygen Related Data Home oxygen amount: 4 liters ( 6 l/m with activity) Home Medications Medication Instructions Recorded Confirmed fluticasone propion-salmeterol 1 inh INHALATION Q12H 05/04/21 05/04/21 [Advair Diskus] Allergies Allergy/AdvReac Type Severity Reaction Status Date / Time No Known Allergies Allergy Verified 04/29/21 11:28 Review of Systems Constitutional: Constitutional: Denies chills, Denies fever(s) and Denies weakness ENT: Denies nasal congestion and Denies sore throat Cardiovascular: Cardiovascular: Denies chest pain and Denies radiating jaw, neck or arm pain Respiratory: Respiratory: Denies cough, Reports dyspnea and Reports wheezing Gastrointestinal: Gastrointestinal: Denies abdominal pain, Denies diarrhea, Denies nausea and Denies vomiting Genitourinary: Genitourinary: Denies hematuria, Denies nocturia and Denies dysuria Musculoskeletal: Musculoskeletal: Denies back pain, Denies arthralgias, Denies joint swelling and Denies muscle cramps Integumentary/Breasts: Skin/Breast: Denies pruritus, Denies erythema and Denies rash Neurologic: Denies vertigo, Denies dizziness and Denies syncope Hematologic/Lymphatic: Hematologic/Lymphatic: Denies easy bleeding and Denies easy bruising Allergic/Immunologic: Allergic/Immunologic: Denies lip swelling and Denies throat swelling PMF Past Medical History Medical History COPD (chronic obstructive pulmonary disease) Encounter for vaccination Hypertension Surgical History Surgical History No history of previous surgery Family History Family History Other Family history of type 2 diabetes mellitus Social History Social History Smoking status: Former smoker Tobacco type: cigarettes Second hand tobacco smoke exposure: Yes Additional smoking assessment comments: Quit 2015. 40 pack-year history. Alcohol intake: current Drinks per week: 12 Substance use: never Spiritual care concerns: No Exam Const: General: alert and ill appearing chronically ( Pulmonary cachexia) Other: Moderate acute distress. Anxious appearing. Oriented to person and place. HENMT: Head: normal to inspection Ears: external ears normal and EAC's normal Face and sinus: normal facial exam Mouth: Yes moist mucous membranes Throat: posterior oropharynx normal Eyes: Conjunctivae: conjunctivae normal Pupils: Equal, round and reactive pupils present EOM: EOMs intact bilaterally Resp: Effort & Inspection: labored, tachypneic and uses accessory muscles ( intermittently) Auscultation: no rales, no rhonchi, wheezes expiratory wheezes and throughout and diminished lung sounds diffuse Cardio: Rate: regular rate Rhythm: regular rhythm Heart sounds: no murmurs Skin: General skin exam:
[2021-05-04 04:58] LABS: Influenza A QL RT-PCR Negative (Negative); Influenza B QL RT-PCR Negative (Negative); SARS-CoV-2 RNA PCR Negative (Negative)
[2021-05-04] MEDS: ONDANSETRON INJ 4 MG/2 ML VIAL IV PUSH (05:35)
[2021-05-04 05:36] LABS: Add Urine Microscopic? NO; Appearance Urine Clear (Clear); Bilirubin Urine Negative (Negative); Blood Urine Negative (Negative); Color Urine Light Yellow (Yellow); Glucose Urine UA Negative (Negative); Ketones Urine Negative (Negative); Leukocyte Esterase Ur Negative LEU/UL (Negative); Nitrate Urine Negative (Negative); Protein Urine Negative (Negative); Specific Grav Ur 1.015 (1.010-1.020); Urobilinogen Urine 0.2 mg/dL (0.2-1.0)
--- NOTE | 2021-05-04 05:42 | PC.NURSE ---
RT in pt room for set up of hi flow O2.
[2021-05-04] MEDS: LOSARTAN POTASSIUM 50 MG TABLET 100 MG PO (06:01)
[2021-05-04 08:10] LABS: Base Excess ABG 19.2 mmol/L (0-2); HCO3 ABG 52.2 mmol/L (23-29); Oxygen Content ABG 15.2 %vol (16.0-22.0); Oxygen Saturation ABG 91.4 % (95-97); Oxyhemoglobin 90.9 % (94-100); PO2 ABG 66.5 mmHg (80-90); Total Hemoglobin 11.9 g/dL (12.0-18.0); pH ABG 7.22 (7.35-7.45)
[2021-05-04 08:13] LABS: Device HIGH FLOW NASAL CANN; Modified Allen's Test Pass; Site Drawn LEFT RADIAL
[2021-05-04 08:29] LABS: Troponin I 32.2 ng/L (0.00-60.4)
--- NOTE | 2021-05-04 11:27 | PM.IMHP ---
H&P: HPI History of Present Illness Date/Time: 05/04/21 11:27 October Daren is a 65 year old female admitted for COPD Exacerbation, Acute on Chronic Respiratory Failure, and Hypertension. Pt states that he breathing was getting worse over the last couple of weeks. Pt states one of her medications were changes but her breathing did not improve. Otherwise she states she has been taking her medications like she is suppose to do. She is not complaining of CP, fever, chills, muscle and body aches. She is wanting to return to her home as soon as possible. <JAMES Menchaca - Last Filed: 05/04/21 12:25> Chief Complaint: SOB <JAMES Menchaca - Last Filed: 05/04/21 12:25> Review of Systems Constitutional: Constitutional: Reports no additional constitutional complaints <JAMES Menchaca - Last Filed: 05/04/21 12:25> Cardiovascular: Cardiovascular: Reports no additional cardiovascular complaints, Denies chest pain and Denies chest pain at rest <JAMES Menchaca - Last Filed: 05/04/21 12:25> Respiratory: Respiratory: Reports no additional respiratory complaints, Reports cough (occasional) and Reports dyspnea <JAMES Menchaca - Last Filed: 05/04/21 12:25> Gastrointestinal: Gastrointestinal: Reports no additional gastrointestinal complaints <JAMES Menchaca - Last Filed: 05/04/21 12:25> Genitourinary: Genitourinary: Reports no additional female genitourinary complaints <JAMES Menchaca - Last Filed: 05/04/21 12:25> Musculoskeletal: Musculoskeletal: Reports no additional musculoskeletal complaints <JAMES Menchaca - Last Filed: 05/04/21 12:25> Neurologic: Reports system reviewed and no additional complaints, except as documented, Denies dizziness, Denies headache(s) and Denies loss of vision <JAMES Menchaca - Last Filed: 05/04/21 12:25> Psychiatric: Psychiatric: Reports no additional psychiatric complaints <JAMES Menchaca - Last Filed: 05/04/21 12:25> PMFSH Past Medical History Medical History: Medical History COPD (chronic obstructive pulmonary disease) Encounter for vaccination Hypertension <JAMES Menchaca - Last Filed: 05/04/21 12:25> Surgical History Surgical History: Surgical History No history of previous surgery <JAMES Menchaca - Last Filed: 05/04/21 12:25> Family History Family History: Family History Other Family history of type 2 diabetes mellitus <JAMES Menchaca - Last Filed: 05/04/21 12:25> Social History Social History: Social History Smoking status: Former smoker Tobacco type: cigarettes Second hand tobacco smoke exposure: Yes Additional smoking assessment comments: Quit 2015. 40 pack-year history. Alcohol intake: current Drinks per week: 12 Substance use: never Spiritual care concerns: No <JAMES Menchaca - Last Filed: 05/04/21 12:25> Meds Home Medications and Allergies Home medications: Home Medications Medication Instructions Recorded Confirmed Type albuterol sulfate 90 mcg/actuation 2 inh INHALATION Q4H PRN #8.5 g 03/19/21 05/04/21 Rx aerosol inhaler losartan 100 mg tablet See Rx Instructions .ROUTE 03/19/21 05/04/21 Rx .COMPLEX #90 tablet theophylline 200 mg 200 mg PO DAILY #60 cap 03/19/21 05/04/21 Rx capsule,extended release 24 hr umeclidinium 62.5 mcg/actuation 1 inh INHALATION DAILY #30 ea 03/19/21 05/04/21 Rx blister powder for inhalation diltiazem HCl 240 mg PO QAM #30 cap 04/12/21 05/04/21 Rx ipratropium-albuterol 3 ml INHALATION QID #180 ml 04/12/21 05/04/21 Rx oxycodone 5 mg tablet 5 mg PO Q8H PRN #90 tablet 04/15/21 05/04/21 Rx albuterol sulfate 90 mcg/actuation 1 inh INHALATION Q4H PRN #6.7
[2021-05-04] MEDS: methylPREDNISolone SOD SUCC 40 MG VIAL IV PUSH ×2 (11:30→17:51)
[2021-05-04] MEDS: ENOXAPARIN 30 MG/0.3 ML SYRINGE SUB-Q (11:30)
[2021-05-04 14:39] LABS: Alveolar/Arterial O2 Gradient 133.3 mmHg; Base Excess ABG 15.4 mmol/L (0-2); Fractional Inspired Oxygen 40 %; Oxygen Content ABG 14.8 %vol (16.0-22.0); Oxyhemoglobin 87.3 % (94-100); PO2 ABG 51.4 mmHg (80-90); PO2 FiO2 Ratio Arterial Blood 1.29 %; Total Hemoglobin 12.1 g/dL (12.0-18.0); pH ABG 7.33 (7.35-7.45)
[2021-05-04] MEDS: THEOPHYLLINE ANHYDROUS 100 MG CAP.ER.24H 200 MG PO (14:39)
[2021-05-04 14:40] LABS: Device HIGH FLOW NASAL CANN; Modified Allen's Test Pass; PCO2 ABG 87.4 mmHg (35-45); Site Drawn LEFT RADIAL
[2021-05-05] VITALS (15 sets, daily range): BP systolic 138–173; BP diastolic 79–93; PULSE 82–105; RESP 16–20; TEMP 35.8–36.6; O2SAT 90–95
[2021-05-05] MEDS: IPRATROPIUM 0.5 MG/ALBUTEROL SULFATE 2.5 MG AMPUL.NEB 3 ML INHALATION ×4 (00:41→18:53)
[2021-05-05 05:55] LABS: Basophils Absolute Auto 0.01 K/mm3 (0.00-0.10); Basophils Percent Auto 0.2 % (0.0-1.0); Hematocrit 38.8 % (35.0-42.0); Hemoglobin 11.8 g/dL (11.7-13.8); Immature Granulocyte Absolute 0.02 K/mm3 (0.00-0.00); Immature Granulocyte Percent A 0.4 % (0.0-0.0); Lymphocytes Absolute Auto 0.17 K/mm3 (1.10-4.50); Lymphocytes Percent Auto 3.6 % (18.0-42.0); Mean Corpuscular HGB Conc 30.4 g/dL (32.0-36.0); Mean Corpuscular Hemoglobin 32.2 pg (27.0-31.0); Mean Platelet Volume 10.9 fl (9.2-11.8); Monocytes Percent Auto 8.5 % (2.0-11.0); Neutrophils Absolute Auto 4.1 K/mm3 (1.7-7.2); Neutrophils Percent Auto 87.3 % (50.0-70.0); Platelet Count Result 190 K/mm3 (150-420); Red Blood Count 3.66 M/mm3 (4.20-5.40); Red Cell Distribution Width 11.7 % (11.6-14.4); White Blood Count 4.7 K/mm3 (4.8-10.8)
[2021-05-05 06:07] LABS: Alanine Aminotransferase 31 U/L (14-59); Albumin Level 3.6 g/dL (3.4-5.0); Alkaline Phosphatase 63 U/L (46-116); Aspartate Amino Transferase 23 U/L (15-37); Bilirubin,Total 0.3 mg/dL (0.00-1.00); Blood Urea Nitrogen 10 mg/dL (7-18); Calcium 9.5 mg/dL (8.5-10.1); Chloride 89 mmol/L (98-108); Estimated CRCL calculation 62 ml/min; Estimated Glomerular Filt Rate > 60; Glucose 118 mg/dL (70-99); Osmolality Calculated 280 mOsm/kg (285-295); Potassium 4.6 mmol/L (3.5-5.1); Sodium 135 mmol/L (136-145); Total Protein 7.1 g/dL (6.4-8.2)
[2021-05-05 06:09] LABS: Carbon Dioxide > 45 mmol/L (21-32)
[2021-05-05] MEDS: UMECLIDINIUM BROMIDE 62.5 MCG ELLIPTA 1 PUFF INHALATION (08:48)
[2021-05-05] MEDS: ENOXAPARIN 30 MG/0.3 ML SYRINGE SUB-Q (08:49)
[2021-05-05] MEDS: LOSARTAN POTASSIUM 50 MG TABLET 100 MG PO (08:50)
[2021-05-05] MEDS: methylPREDNISolone SOD SUCC 40 MG VIAL IV PUSH ×2 (08:50→16:57)
[2021-05-05] MEDS: THEOPHYLLINE ANHYDROUS 100 MG CAP.ER.24H 200 MG PO (08:53)
--- NOTE | 2021-05-05 12:57 | PM.IMPN ---
Progress Note: A&P Assessment and Plan (1) Acute exacerbation of chronic obstructive pulmonary disease: Code(s): J44.1 - Chronic obstructive pulmonary disease with (acute) exacerbation Status: Acute Assessment and Plan: DuoNeb, Solu-Medrol, Rocephin, Azithromycin, Incruse Ellipta, Theophylline and will obtain serum level, HFNC 50/53 wean, will attempt BiPAP with rate control pCO2 elevated at 130s was 170s, Pt states breathing is better. 05/05/2021 pCO2 showing some improvement currently 87.4, she was unable to tolerate BiPAP or CPAP, Lung sounds improving slowly. (2) Acute and chronic respiratory failure: Qualifiers: Respiratory failure complication: hypercapnia Qualified Code(s): J96.22 - Acute and chronic respiratory failure with hypercapnia Code(s): J96.20 - Acute and chronic respiratory failure, unspecified whether with hypoxia or hypercapnia Status: Acute Assessment and Plan: Related to COPD Exacerbation (3) Hypertension: Qualifiers: Hypertension type: unspecified Qualified Code(s): I10 - Essential (primary) hypertension Code(s): I10 - Essential (primary) hypertension Status: Chronic Assessment and Plan: Continue Losartan, Cardizem 05/05/2021 BP 120-130 / 60-70 yesterday, 158-170 / 90s overnight, 170/89 HR 102. Added Amlodipine 5 mg daily. Additional Plan I have examined this pat and agree with the assessment and plan of JAMES Diane. Pt is an ex-smoker with COPD on home oxygen. She presents with COPD Exacerbation with Bilateral lung infiltrates. She developed Acute on chronic resp failure for which she is on HFNC. She stated that she cannot tolerate CPAP. Continue Solumedrol, Rocephin and Zithromax. She tested negative for Influenza and COVID RT PCR. Subjective Date/time seen: 05/05/21 12:57 Pt states her breathing is improved today. She does not look as tired as she was yesterday. Pt has no complaints at this time. No fever, chills, chest pain, abdominal issues, no coughing. Pt does not have any questions at this time. Yesterday she was hoping to go home and today she is good with staying longer. Review of Systems Review of Systems: All systems reviewed & are unremarkable except as noted in HPI and below Exam Const: General: cooperative, comfortable, no acute distress, alert, awake and Physically active Nutritional Appearance: average body habitus Resp: Effort & Inspection: normal respiratory effort Auscultation: rhonchi, wheezes and other (lung sounds improved) Cardio: Rate: regular rate Heart sounds: S1 normal heart sound present, S2 normal heart sound present and Other heart sounds present (tachy at times) GI: GI Palp: Yes Firmness to palpation present (GI) (belly breather), No Tenderness to palpation present (GI) and No Guarding due to palpation present (GI) Auscultation: normal bowel sounds Skin: General skin exam: normal color and dry skin Neuro: General: oriented to person, oriented to place and oriented to time Cranial nerves: Yes CN's II-XII intact bilaterally (grossly intact) Cognition (Neuro): normal cognition Speech: normal speech Extrem: General: no pedal edema and no calf tenderness Psych: Mental Status: mental status grossly normal Speech and movement: Normal speech and movement present Affect: normal affect Attitude: cooperative Thought process: Normal thought process present Objective Data Vital Signs Vital Signs: Vital Signs - 24 hr 05/04/21 14:00 05/04/21 15:45 05/04/21 16:20 Temperature 97.8 F 97.4 F L Pulse Rate 89 94 80 Respiratory Rate 20 20 Blood Pressure 125/65 138/69 Pulse Oximetry 96 90 05/04/21 18:45 05/04/21 19:01 05/04/21 20:00 Temperature 97 F L Pulse Rate 82 82 88 Respiratory Rate 15 17 18 Blood Pressure 129/68 Pulse Oximetry 90 90 92 05/04/21 23:54 05/05/21 00:00 05/05/21 00:41 Temperature 97 F L Pulse Rate 88 94 85 Respiratory Rate 20 20 Blood Pressure 158
[2021-05-05] MEDS: amLODIPine BESYLATE 5 MG TABLET PO (13:01)
[2021-05-05] MEDS: LORazepam (*CRX) 0.5 MG TABLET PO (15:01)
[2021-05-06] VITALS (13 sets, daily range): BP systolic 159–186; BP diastolic 83–104; PULSE 88–115; RESP 18–22; TEMP 35.6–35.9; O2SAT 90–98
[2021-05-06] MEDS: IPRATROPIUM 0.5 MG/ALBUTEROL SULFATE 2.5 MG AMPUL.NEB 3 ML INHALATION ×3 (00:41→13:02)
[2021-05-06 05:23] LABS: HCO3 ABG 46.3 mmol/L (23-29); Oxygen Content ABG 17.8 %vol (16.0-22.0); Oxygen Saturation ABG 94.5 % (95-97); Oxyhemoglobin 93.9 % (94-100); PCO2 ABG 64.6 mmHg (35-45); PO2 ABG 69.9 mmHg (80-90); Total Hemoglobin 13.5 g/dL (12.0-18.0); pH ABG 7.47 (7.35-7.45)
[2021-05-06 05:25] LABS: Modified Allen's Test Pass; Site Drawn LEFT RADIAL
[2021-05-06 05:27] LABS: Device HIGH FLOW NASAL CANN
[2021-05-06 05:34] LABS: Hematocrit 43.3 % (35.0-42.0); Hemoglobin 13.7 g/dL (11.7-13.8); Immature Granulocyte Absolute 0.02 K/mm3 (0.00-0.00); Immature Granulocyte Percent A 0.3 % (0.0-0.0); Lymphocytes Absolute Auto 0.14 K/mm3 (1.10-4.50); Mean Corpuscular HGB Conc 31.6 g/dL (32.0-36.0); Mean Corpuscular Hemoglobin 32.2 pg (27.0-31.0); Mean Corpuscular Volume 101.6 fL (78.0-102.0); Mean Platelet Volume 10.7 fl (9.2-11.8); Monocytes Absolute Auto 0.62 K/mm3 (0.10-0.90); Neutrophils Absolute Auto 6.1 K/mm3 (1.7-7.2); Neutrophils Percent Auto 88.7 % (50.0-70.0); Platelet Count Result 213 K/mm3 (150-420); Red Blood Count 4.26 M/mm3 (4.20-5.40); Red Cell Distribution Width 11.9 % (11.6-14.4); White Blood Count 6.9 K/mm3 (4.8-10.8)
[2021-05-06 06:00] LABS: Alanine Aminotransferase 29 U/L (14-59); Albumin Level 3.6 g/dL (3.4-5.0); Alkaline Phosphatase 64 U/L (46-116); Aspartate Amino Transferase 18 U/L (15-37); Bilirubin,Total 0.3 mg/dL (0.00-1.00); Blood Urea Nitrogen 10 mg/dL (7-18); Calcium 9.5 mg/dL (8.5-10.1); Chloride 89 mmol/L (98-108); Estimated CRCL calculation 72 ml/min; Estimated Glomerular Filt Rate > 60; Glucose 124 mg/dL (70-99); Osmolality Calculated 278 mOsm/kg (285-295); Potassium 4.1 mmol/L (3.5-5.1); Sodium 134 mmol/L (136-145); Total Protein 7.3 g/dL (6.4-8.2)
[2021-05-06 06:12] LABS: Anion Gap 1 mmol/L (8-16); Carbon Dioxide 44 mmol/L (21-32)
[2021-05-06] MEDS: methylPREDNISolone SOD SUCC 40 MG VIAL IV PUSH (09:00)
[2021-05-06] MEDS: ENOXAPARIN 30 MG/0.3 ML SYRINGE SUB-Q (09:00)
[2021-05-06] MEDS: UMECLIDINIUM BROMIDE 62.5 MCG ELLIPTA 1 PUFF INHALATION (09:00)
[2021-05-06] MEDS: LOSARTAN POTASSIUM 50 MG TABLET 100 MG PO (09:00)
[2021-05-06] MEDS: THEOPHYLLINE ANHYDROUS 100 MG CAP.ER.24H 200 MG PO (09:00)
[2021-05-06] MEDS: amLODIPine BESYLATE 5 MG TABLET PO (09:01)
[2021-05-06] MEDS: LORazepam (*CRX) 0.5 MG TABLET PO (09:01)
[2021-05-06] MEDS: ACETAMINOPHEN 325 MG TABLET 650 MG PO (09:01)
--- NOTE | 2021-05-06 11:48 | PM.DS ---
DS: Admitting Diagnosis Discharge Date 05/06/2021 <Matias CrawfordJAMES Reynolds - Last Filed: 05/06/21 13:22> Admitting Diagnosis COPD Exacerbation, Acute on Chronic Respiratory Failure, HTN <Matias CrawfordJAMES Reynolds - Last Filed: 05/06/21 13:22> DS: Discharge Diagnosis Discharge Diagnosis (1) Acute exacerbation of chronic obstructive pulmonary disease: Code(s): J44.1 - Chronic obstructive pulmonary disease with (acute) exacerbation <Matias YvetteJAMES Reynolds - Last Filed: 05/06/21 13:22> Status: Acute <Matias CrawfordMARÍA ReynoldsC - Last Filed: 05/06/21 13:22> Assessment and Plan: DuoNeb, Solu-Medrol, Rocephin, Azithromycin, Incruse Ellipta, Theophylline and will obtain serum level, HFNC 50/53 wean, will attempt BiPAP with rate control pCO2 elevated at 130s was 170s, Pt states breathing is better. 05/05/2021 pCO2 showing some improvement currently 87.4, she was unable to tolerate BiPAP or CPAP, Lung sounds improving slowly. 05/06/2021 Pt has been tolerating her home oxygen setting since early this AM while maintaining SpO2 oaf 95%, will DC with Azithromycin <Matias YvetteJAEMS Reynolds - Last Filed: 05/06/21 13:22> (2) Acute and chronic respiratory failure: Qualifiers: Respiratory failure complication: hypercapnia Qualified Code(s): J96.22 - Acute and chronic respiratory failure with hypercapnia <JAMES Menchaca - Last Filed: 05/06/21 13:22> Code(s): J96.20 - Acute and chronic respiratory failure, unspecified whether with hypoxia or hypercapnia <Matias Diane APN-C - Last Filed: 05/06/21 13:22> Status: Acute <Matias CrawfordJAMES Reynolds - Last Filed: 05/06/21 13:22> Assessment and Plan: Related to COPD Exacerbation <JAMES Menchaca - Last Filed: 05/06/21 13:22> (3) Hypertension: Qualifiers: Hypertension type: unspecified Qualified Code(s): I10 - Essential (primary) hypertension <Matias YvetteJAMES Reynolds - Last Filed: 05/06/21 13:22> Code(s): I10 - Essential (primary) hypertension <Matias CrawfordJAMES Reynolds - Last Filed: 05/06/21 13:22> Status: Chronic <Matias CrawfordJAMES Reynolds - Last Filed: 05/06/21 13:22> Assessment and Plan: Continue Losartan, Cardizem 05/05/2021 BP 120-130 / 60-70 yesterday, 158-170 / 90s overnight, 170/89 HR 102. Added Amlodipine 5 mg daily. 05/06/2021 Will continue Amlodipine on DC. Discussed elevated BP with Pt's PCP and that Hydralazine 10 mg IV was administered with BP results of 159/83 Dr. Christianson stated he will see the Pt in the longterm after DC and would like Amlodipine increased to 10 mg daily. <JAMES Menchaca - Last Filed: 05/06/21 13:22> DS: Summary Hospital Course Hospital Course: Oxygen demand returned to home O2 settings, lung sounds improved, Pt more comfortable, HTN addressed. <JAMES Menchaca - Last Filed: 05/06/21 13:22> Time Spent with Patient Time attestation: Total time spent providing and/or coordinating discharge services: < 30 minutes <JAMES Menchaca - Last Filed: 05/06/21 13:22> Exam Const: General: cooperative, comfortable, no acute distress, well developed, alert, awake and Physically active <JAMES Menchaca - Last Filed: 05/06/21 13:22> Nutritional Appearance: underweight <JAMES Menchaca - Last Filed: 05/06/21 13:22> Resp: Effort & Inspection: normal respiratory effort <JAMES Menchaca - Last Filed: 05/06/21 13:22> Auscultation: wheezes (scattered, on Home O2 settings with SpO2 95%) <JAMES Menchaca - Last Filed: 05/06/21 13:22> Cardio: Rate: tachycardic (at times) <JAMES Menchaca - Last Filed: 05/06/21 13:22> Heart sounds: S1 normal heart sound present and S2 normal heart sound present <JAMES Menchaca - Last Filed: 05/06/21 13:22> GI: GI Palp: Yes Firmness to palpation present (GI) (belly breather), No Tenderness to palpation present (GI) and No Guarding
[2021-05-06] MEDS: hydrALAZINE HCL 20 MG/ML VIAL IV PUSH (12:39)
--- NOTE | 2021-05-06 14:45 | PC.NURSE ---
Discharge instructions reviewed with patient. RECONNAISSANCE MAN from [employer] [facility] arrived with wheelchair. Patient returned to with oxygen per nasal cannula, all belongings sent with patient. Report called to Alivia
--- NOTE | 2021-05-07 11:07 | PC.NURSE ---
[facility] nurse states they received and had no issues with the discharge instructions.
== END 2021-05-06 14:45 | DRG 190 ==
LOC: CHSED 05:04 → CHS2ND 06:48
PROVIDERS: Internal Medicine Critical Care Medicine; Nurse Practitioner Family; Admitting Provider Emergency Medicine; Emergency Provider Emergency Medicine; PCP Family Medicine; Visit Provider Emergency Medicine
DX: J44.1 Chronic obstructive pulmonary disease with (acute) exacerbation (principal); J96.20 Acute and chronic respiratory failure, unspecified whether with hypoxia or hypercapnia; I10 Essential (primary) hypertension; Z87.891 Personal history of nicotine dependence; Z20.822 Contact with and (suspected) exposure to COVID-19; Z99.81 Dependence on supplemental oxygen
CPT/HCPCS: 36415; 36600; 71045; 80053; 80198; 81003; 82805; 83735; 83880; 84484; 85025; 87040; 87502; 93005; 94640; 94660; 96365; 96375; 99285; A9270; C9803; J0360; J0456; J0696; J1650; J2405; J2920; U0003; U0005

== ENCOUNTER 2021-05-19 17:26 | Observation (INO) | payer MEDICARE, SELFPAY ==
[2021-05-19] VITALS (7 sets, daily range): BP systolic 139–151; BP diastolic 78–81; PULSE 74–100; RESP 20–22; TEMP 36.1–36.4; O2SAT 93–100; BMI 19.5
--- NOTE | ~2021-05-19 | XR_ITS ---
EXAMINATION: XR chest 2V DATE: 05/19/2021 19:18 INDICATION: Shortness of breath TECHNIQUE: AP and lateral views of the chest are obtained. COMPARISON: 05/04/2021 FINDINGS: There are small pleural effusions. The cardiomediastinal silhouette is stable. There are mi nimal airspace opacities of the lung bases. No pneumothorax is identified. There is moderate thoracic spondylosis. IMPRESSION: 1. Minimal bibasilar airspace opacities, consistent with atelectasis versus pneumonia. 2. Small pleural effusions. Reviewed, dictated and finalized at location [facility]. [facility] IMPRESSION: 1. Minimal bibasilar airspace opacities, consistent with atelectasis versus pne umonia. 2. Small pleural effusions.
--- NOTE | 2021-05-19 17:32 | ECG_ITS ---
Measurements Intervals [place] Rate: 89 P: 81 CT: 144 QRS: 33 QRSD: 72 T: 64 QT: 340 QTc: 415 Interpretive Statements SINUS RHYTHM ATRIAL PREMATURE COMPLEX POSSIBLE LEFT ATRIAL ENLARGEMENT DELAYED PRECORDIAL R/S TRANSITION BASELINE ARTIFACT- I, II, III, AVR, AVL BORDERLINE ECG Electronically Signed On 05-19-2021 20:02:59 [employer] by Ronny Boland D.O.
--- NOTE | 2021-05-19 17:58 | ED.SOB ---
HPI - SOB/Dyspnea General Chief Complaint: Shortness of Breath/Dyspnea Stated Complaint: amb Time Seen by Provider: 05/19/21 17:26 Source: patient and EMS Mode of arrival: EMS Limitations: no limitations History of Present Illness HPI Narrative: 65-year-old woman who has severe COPD and is on 4 L by nasal cannula oxygen at home brought to the emergency department for increasing shortness breath over last several days. Patient states she [facility] after a stay from May 04 to May 06 here for COPD exacerbation. She denies any chest pain, fever, vomiting, abdominal pain however she does note that she has some swelling to her legs. Her cough is nonproductive. EMS noted that she had at 30 ft oxygen hose and that her home smiled like natural gas. None was detected by FD. MD elicited complaint: shortness of breath and cough Pertinent past history: COPD Onset (ago): day(s) (3) Timing: constant and progressively worsening Severity: moderate Exacerbating factors: lying flat and exertion Relieving factors: nothing Known history of: COPD Associated symptoms: cough, wheezing and orthopnea Treatment prior to arrival: bronchodilator Related Data Home oxygen amount: 4 liters Home Medications Medication Instructions Recorded Confirmed fluticasone propion-salmeterol 1 inh INHALATION Q12H 05/04/21 05/19/21 [Advair Diskus] losartan 100 mg PO DAILY 05/19/21 05/19/21 Allergies Allergy/AdvReac Type Severity Reaction Status Date / Time No Known Allergies Allergy Verified 05/19/21 19:09 Review of Systems Review of Systems: All systems reviewed & are unremarkable except as noted in HPI and below Constitutional: Constitutional: Denies chills, Denies fever(s) and Denies weakness Eyes: Eyes: Denies change in vision and Denies photophobia ENT: Denies nasal congestion and Denies sore throat Cardiovascular: Cardiovascular: Denies chest pain and Denies radiating jaw, neck or arm pain Respiratory: Respiratory: Reports chest congestion, Reports cough, Reports dyspnea and Reports wheezing Gastrointestinal: Gastrointestinal: Denies abdominal pain, Denies diarrhea, Denies nausea and Denies vomiting Genitourinary: Genitourinary: Denies nocturia and Denies dysuria Musculoskeletal: Musculoskeletal: Denies back pain, Denies arthralgias and Denies joint swelling Integumentary/Breasts: Skin/Breast: Denies pruritus, Denies erythema and Denies rash Neurologic: Denies vertigo, Denies dizziness, Denies syncope, Denies headache(s) and Denies focal weakness Allergic/Immunologic: Allergic/Immunologic: Denies lip swelling and Denies throat swelling PMFSH Past Medical History Medical History COPD (chronic obstructive pulmonary disease) Hypertension Surgical History Surgical History No history of previous surgery Family History Family History Other Family history of type 2 diabetes mellitus Social History Social History Smoking packs per day: 1 Smoking cigarettes per day: 20.0 Years smoked: 8 Smoking pack-years: 8.00 Smoking status: Former smoker Tobacco type: cigarettes Second hand tobacco smoke exposure: No Smoking end date: 05/04/18 Additional smoking assessment comments: Quit 2015. 40 pack-year history. Alcohol intake: never Drinks per week: 12 Substance use: never Spiritual care concerns: No Exam Const: General: healthy appearing and alert Orientation/consciousness: patient oriented x3 Limitations: no limitations Other: Mild acute distress. HENMT: Head: normal to inspection Ears: external ears normal, TM's normal bilaterally and EAC's normal General nose exam: Normal nares present Face and sinus: normal facial exam
[2021-05-19 18:06] LABS: Base Excess ABG 16.1 mmol/L (0-2); HCO3 ABG 46.9 mmol/L (23-29); Oxygen Content ABG 16.9 %vol (16.0-22.0); Oxygen Saturation ABG 98.1 % (95-97); PO2 ABG 134.1 mmHg (80-90); Total Hemoglobin 12.1 g/dL (12.0-18.0); pH ABG 7.29 (7.35-7.45)
[2021-05-19 18:09] LABS: Basophils Absolute Auto 0.03 K/mm3 (0.00-0.10); Basophils Percent Auto 0.3 % (0.0-1.0); Eosinophils Absolute Auto 0.13 K/mm3 (0.02-0.50); Eosinophils Percent Auto 1.4 % (1.0-6.0); Hematocrit 38.7 % (35.0-42.0); Immature Granulocyte Absolute 0.04 K/mm3 (0.00-0.00); Immature Granulocyte Percent A 0.4 % (0.0-0.0); Lymphocytes Absolute Auto 0.39 K/mm3 (1.10-4.50); Lymphocytes Percent Auto 4.2 % (18.0-42.0); Mean Corpuscular Hemoglobin 32.6 pg (27.0-31.0); Mean Corpuscular Volume 105.2 fL (78.0-102.0); Mean Platelet Volume 9.8 fl (9.2-11.8); Monocytes Absolute Auto 0.94 K/mm3 (0.10-0.90); Monocytes Percent Auto 10.2 % (2.0-11.0); Neutrophils Absolute Auto 7.7 K/mm3 (1.7-7.2); Neutrophils Percent Auto 83.5 % (50.0-70.0); Platelet Count Result 297 K/mm3 (150-420); Red Blood Count 3.68 M/mm3 (4.20-5.40); Red Cell Distribution Width 12.2 % (11.6-14.4); White Blood Count 9.2 K/mm3 (4.8-10.8)
[2021-05-19 18:13] LABS: Device NASAL CANNULA; Modified Allen's Test Pass; PCO2 ABG 100.1 mmHg (35-45); Site Drawn LEFT RADIAL
--- NOTE | 2021-05-19 18:13 | PC.NURSE ---
ERP Dr. Wright made aware of pts critical PCO2 of 100.1
[2021-05-19 18:32] LABS: Lactic Acid Reflex 0.7 mmol/L (0.4-2.0)
[2021-05-19 18:33] LABS: Alanine Aminotransferase 41 U/L (14-59); Albumin Level 3.9 g/dL (3.4-5.0); Alkaline Phosphatase 87 U/L (46-116); Aspartate Amino Transferase 29 U/L (15-37); Bilirubin,Total 0.2 mg/dL (0.00-1.00); Blood Urea Nitrogen 10 mg/dL (7-18); Calcium 9.6 mg/dL (8.5-10.1); Chloride 88 mmol/L (98-108); Estimated CRCL calculation 68 ml/min; Estimated Glomerular Filt Rate > 60; Glucose 96 mg/dL (70-99); Magnesium 2.1 mg/dL (1.8-2.4); NT Pro B Type Natriuretic Pept 130 pg/mL (0-125); Osmolality Calculated 279 mOsm/kg (285-295); Potassium 4.6 mmol/L (3.5-5.1); Sodium 135 mmol/L (136-145); Total Protein 7.8 g/dL (6.4-8.2); Troponin I 29.6 ng/L (0.00-60.4)
[2021-05-19 18:34] LABS: Carbon Dioxide > 45 mmol/L (21-32)
[2021-05-19 18:46] LABS: SARS-CoV-2 RNA PCR Negative (Negative)
[2021-05-19 19:09] LABS: Add Urine Microscopic? YES; Appearance Urine Clear (Clear); Bilirubin Urine Negative (Negative); Blood Urine Negative (Negative); Color Urine Yellow (Yellow); Glucose Urine UA Negative (Negative); Ketones Urine Trace (Negative); Leukocyte Esterase Ur Negative LEU/UL (Negative); Nitrate Urine Negative (Negative); Protein Urine 1+ (Negative); Specific Grav Ur 1.025 (1.010-1.020); Urobilinogen Urine 0.2 mg/dL (0.2-1.0)
[2021-05-19 19:18] LABS: Squamous Epithelial Cell Urine Few /hpf (Few)
[2021-05-19 19:19] LABS: Amorphous Sediment Urine Moderate; Hyaline Casts Urine 20-29 /lpf; Mucus Urine Moderate /lpf
[2021-05-19] MEDS: FUROSEMIDE INJ 40 MG/4 ML VIAL IV PUSH (19:32)
[2021-05-19] MEDS: methylPREDNISolone SOD SUCC 40 MG VIAL 80 MG IV PUSH (19:35)
[2021-05-19] MEDS: IPRATROPIUM 0.5 MG/ALBUTEROL SULFATE 2.5 MG AMPUL.NEB 3 ML INHALATION (20:48)
--- NOTE | 2021-05-19 21:56 | PC.NURSE ---
Patient admitted to room 203 per wheelchair from ER. Is alert, oriented times 4, denies pain. Oriented to room and surroundings and call light.
[2021-05-19 23:47] LABS: Troponin I 24.4 ng/L (0.00-60.4)
[2021-05-20] VITALS (16 sets, daily range): BP systolic 120–135; BP diastolic 67–76; PULSE 86–118; RESP 18–24; TEMP 36.1–37; O2SAT 93–100
[2021-05-20 04:11] LABS: Basophils Absolute Auto 0.01 K/mm3 (0.00-0.10); Basophils Percent Auto 0.2 % (0.0-1.0); Hematocrit 37.6 % (35.0-42.0); Hemoglobin 11.7 g/dL (11.7-13.8); Immature Granulocyte Absolute 0.03 K/mm3 (0.00-0.00); Immature Granulocyte Percent A 0.5 % (0.0-0.0); Lymphocytes Absolute Auto 0.16 K/mm3 (1.10-4.50); Lymphocytes Percent Auto 2.6 % (18.0-42.0); Mean Corpuscular HGB Conc 31.1 g/dL (32.0-36.0); Mean Corpuscular Hemoglobin 32.1 pg (27.0-31.0); Mean Platelet Volume 9.8 fl (9.2-11.8); Monocytes Absolute Auto 0.06 K/mm3 (0.10-0.90); Neutrophils Absolute Auto 5.8 K/mm3 (1.7-7.2); Neutrophils Percent Auto 95.7 % (50.0-70.0); Platelet Count Result 288 K/mm3 (150-420); Red Blood Count 3.65 M/mm3 (4.20-5.40); Red Cell Distribution Width 11.9 % (11.6-14.4); White Blood Count 6.1 K/mm3 (4.8-10.8)
[2021-05-20 04:26] LABS: Alanine Aminotransferase 37 U/L (14-59); Albumin Level 3.6 g/dL (3.4-5.0); Aspartate Amino Transferase 17 U/L (15-37); Bilirubin,Total 0.3 mg/dL (0.00-1.00); Blood Urea Nitrogen 11 mg/dL (7-18); Calcium 9.2 mg/dL (8.5-10.1); Chloride 88 mmol/L (98-108); Estimated CRCL calculation 62 ml/min; Estimated Glomerular Filt Rate > 60; Glucose 153 mg/dL (70-99); Osmolality Calculated 284 mOsm/kg (285-295); Potassium 4.2 mmol/L (3.5-5.1); Sodium 136 mmol/L (136-145); Total Protein 7.3 g/dL (6.4-8.2)
[2021-05-20 04:27] LABS: Carbon Dioxide > 45 mmol/L (21-32)
[2021-05-20 04:28] LABS: Alkaline Phosphatase 82 U/L (46-116); Troponin I 22.9 ng/L (0.00-60.4)
[2021-05-20] MEDS: IPRATROPIUM 0.5 MG/ALBUTEROL SULFATE 2.5 MG AMPUL.NEB 3 ML INHALATION ×4 (05:38→20:24)
[2021-05-20] MEDS: SALMET XINAFT/FLUTIC PROPIN 500 MCG/50 MCG INH CAP 1 PUFF INHALATION ×2 (06:01→17:34)
[2021-05-20 06:49] LABS: Base Excess ABG 18.9 mmol/L (0-2); HCO3 ABG 47.8 mmol/L (23-29); Oxygen Content ABG 15.8 %vol (16.0-22.0); Oxygen Saturation ABG 93.9 % (95-97); Oxyhemoglobin 93.6 % (94-100); PO2 ABG 69.5 mmHg (80-90); pH ABG 7.39 (7.35-7.45)
[2021-05-20 06:52] LABS: Device NASAL CANNULA; Modified Allen's Test Pass; PCO2 ABG 80.9 mmHg (35-45); Site Drawn RIGHT RADIAL
--- NOTE | 2021-05-20 07:00 | ECHO_ITS ---
Patient Info Name: Peyton Mercedes Age: 65 years : 1955 Gender: Female Ht: 62 in Wt: 106 lbs BSA: 1.45 m2 HR: 111 bpm BP: 131 / 72 mmHg Technical Quality: Fair Exam Date: 05/20/2021 9:11 AM Exam Location: [facility] Patient Status: Outpatient Admit Date: 05/19/2021 Staff Ordering Physician: Rm Wright MD Embalmer/Funeral Director: Melonie Lloyd Attending Provider: Rm Wright MD Referring Physician: Kyle MATTHEWS; Exam Type: CA echo doppler color flow Study Info Indications R06.00 - Dyspnea, unspecified Complete two-dimensional, color flow and Doppler transthoracic echocardiogram is performed. Strain analysis performed. Summary 1. Complete two-dimensional, color flow and Doppler transthoracic echocardiogram is performed. 2. Left ventricular chamber dimension is normal. 3. Left ventricular systolic function is normal, estimated at 65-70%. 4. The left ventricular diastolic function is grade I diastolic dysfunction. 5. Global longitudinal strain is abnormal at -12.5%. 6. Left atrial chamber dimension is mildly enlarged. 7. The mitral valve has moderately calcified annulus. 8. No pulmonary hypertension, estimated pulmonary arterial systolic pressure is 22 mmHg. 9. Dilated inferior vena cava with >50% collapse upon inspiration consistent with elevated right atrial pressure, 10 mmHg. Left Ventricle Tissue doppler is not performed. Global longitudinal strain is abnormal at -12.5%. Left ventricular chamber dimension is normal. Left ventricular systolic function is normal, estimated at 65-70%. The left ventricular diastolic function is grade I diastolic dysfunction. Right Ventricle Right ventricular systolic function is normal based on a normal TAPSE 2.1 cm. Right ventricular chamber dimension is not well visualized. Left Atria Left atrial chamber dimension is mildly enlarged. Right Atria Right atrial chamber dimension is normal. Aortic Valve The aortic valve is not well visualized. Cannot determine number of aortic valve leaflets. There is no aortic valve stenosis. There is no aortic valve regurgitation. Pulmonic Valve There is no pulmonic regurgitation. Mitral Valve The mitral valve has moderately calcified annulus. There is no mitral valve stenosis. There is no mitral valve regurgitation. Tricuspid Valve There is no tricuspid valve regurgitation. No pulmonary hypertension, estimated pulmonary arterial systolic pressure is 22 mmHg. Pericardium/Pleural There is no pericardial effusion. Inferior Vena Cava Dilated inferior vena cava with >50% collapse upon inspiration consistent with elevated right atrial pressure, 10 mmHg. Aorta The aortic root size at the sinus of Valsalva is normal. Left Ventricular Outflow Tract Name Value Normal LVOT 2D LVOT Diameter 1.8 cm LVOT Doppler LVOT Peak Velocity 129 cm/s LVOT Peak Gradient 7 mmHg LVOT Mean Gradient 4 mmHg LVOT VTI 25 cm LVOT VTI/AV VTI Ratio 0.8 LVOT Stro
--- NOTE | 2021-05-20 08:07 | PM.IMHP ---
H&P: HPI History of Present Illness Date/Time: 05/20/21 08:07 October Daren is a 65 year old female admitted under Observation for Chronic Hypoxemic Respiratory Failure and Hypercapnic Respiratory Failure related to her COPD. Pt was discharged from a residential back to her home. Once Pt was back home she did not fair very well. Peyton explains that it took her 3 hours to unpack her backs from the residential. She was unable to stand long enough to fix herself meals. With the simplest activities she would become short of breath. Pt states she wants to go back to the residential as she is unable to perform activities of daily living any more on her own. <JAMES Menchaca - Last Filed: 05/20/21 16:54> Chief Complaint: Shortness of breath <JAMES Menhcaca - Last Filed: 05/20/21 16:54> Review of Systems Constitutional: Constitutional: Reports no additional constitutional complaints, Denies body ache(s), Denies chills, Denies fever(s), Denies headache(s) and Reports weakness <JAMES Menchaca - Last Filed: 05/20/21 16:54> Cardiovascular: Cardiovascular: Reports no additional cardiovascular complaints, Denies chest pain, Denies chest pain at rest and Reports pedal edema <JAMES Menchaca - Last Filed: 05/20/21 16:54> Respiratory: Respiratory: Reports no additional respiratory complaints, Reports dyspnea and Reports dyspnea on exertion <JAMES Menchaca - Last Filed: 05/20/21 16:54> Gastrointestinal: Gastrointestinal: Reports no additional gastrointestinal complaints, Denies abdominal pain, Denies diarrhea, Denies nausea and Denies vomiting <JAMES Menchaca - Last Filed: 05/20/21 16:54> Musculoskeletal: Musculoskeletal: Reports no additional musculoskeletal complaints <JAMES Menchaca - Last Filed: 05/20/21 16:54> Neurologic: Reports system reviewed and no additional complaints, except as documented <JAMES Menchaca - Last Filed: 05/20/21 16:54> Psychiatric: Psychiatric: Reports no additional psychiatric complaints <JAMES Menchaca - Last Filed: 05/20/21 16:54> [facility] Past Medical History Medical History: Medical History COPD (chronic obstructive pulmonary disease) Hypertension <JAMES Menchaca - Last Filed: 05/20/21 16:54> Surgical History Surgical History: Surgical History No history of previous surgery <JAMES Menchaca - Last Filed: 05/20/21 16:54> Family History Family History: Family History Other Family history of type 2 diabetes mellitus <JAMES Menchaca - Last Filed: 05/20/21 16:54> Social History Social History: Social History Smoking packs per day: 1 Smoking cigarettes per day: 20.0 Years smoked: 8 Smoking pack-years: 8.00 Smoking status: Never smoker Tobacco type: cigarettes Second hand tobacco smoke exposure: No Smoking end date: 05/04/18 Additional smoking assessment comments: Quit 2015. 40 pack-year history. Alcohol intake: current Drinks per week: 2 Substance use: unknown Substance use type: does not use Spiritual care concerns: No <JAMES Menchaca - Last Filed: 05/20/21 16:54> Meds Home Medications and Allergies Home medications: Home Medications Medication Instructions Recorded Confirmed Type albuterol sulfate 90 mcg/actuation 2 inh INHALATION Q4H PRN #8.5 g 03/19/21 05/19/21 Rx aerosol inhaler theophylline 200 mg 200 mg PO DAILY #60 cap 03/19/21 05/19/21 Rx capsule,extended release 24 hr umeclidinium 62.5 mcg/actuation 1 inh INHALATION DAILY #30 ea 03/19/21 05/19/21 Rx blister powder for inhalation diltiazem HCl 240 mg PO QAM #30 cap 04/12/21 05/19/21 Rx ipratropium-albuterol 3 ml INHALATION QID #180 ml
[2021-05-20] MEDS: predniSONE 20 MG TABLET 40 MG PO (09:46)
[2021-05-20] MEDS: UMECLIDINIUM BROMIDE 62.5 MCG ELLIPTA 1 PUFF INHALATION (09:46)
[2021-05-20] MEDS: amLODIPine BESYLATE 5 MG TABLET 10 MG PO (09:47)
[2021-05-20] MEDS: LOSARTAN POTASSIUM 50 MG TABLET 100 MG PO (09:47)
[2021-05-20] MEDS: THEOPHYLLINE ANHYDROUS 100 MG CAP.ER.24H 200 MG PO (09:54)
[2021-05-21] VITALS (11 sets, daily range): BP systolic 128–150; BP diastolic 68–80; PULSE 87–100; RESP 14–24; TEMP 36.6–36.9; O2SAT 89–98
--- NOTE | 2021-05-21 00:22 | PC.NURSE ---
Patient in bed with eyes closed. No s/s of SOB. wakes to name. pain rated at 0
--- NOTE | 2021-05-21 04:09 | PC.NURSE ---
patient resting with HOB elevated. pain rated at 0. Up to commode independently. Telemetry shows sinus rhythm
[2021-05-21] MEDS: IPRATROPIUM 0.5 MG/ALBUTEROL SULFATE 2.5 MG AMPUL.NEB 3 ML INHALATION ×2 (05:33→11:23)
[2021-05-21 05:56] LABS: Base Excess ABG 15.9 mmol/L (0-2); HCO3 ABG 44.1 mmol/L (23-29); Oxygen Content ABG 16.3 %vol (16.0-22.0); Oxygen Saturation ABG 94.8 % (95-97); Oxyhemoglobin 94.7 % (94-100); PO2 ABG 76.5 mmHg (80-90); Total Hemoglobin 12.2 g/dL (12.0-18.0)
[2021-05-21 06:00] LABS: Device NASAL CANNULA; Modified Allen's Test Pass; PCO2 ABG 73.1 mmHg (35-45); Site Drawn RIGHT RADIAL
--- NOTE | 2021-05-21 06:05 | PC.NURSE ---
Dr. Flores notified of pt's ABG Pco2 of 73.1; No new orders at this time.
[2021-05-21 06:07] LABS: Blood Urea Nitrogen 8 mg/dL (7-18); Calcium 8.8 mg/dL (8.5-10.1); Chloride 93 mmol/L (98-108); Estimated CRCL calculation 91 ml/min; Estimated Glomerular Filt Rate > 60; Glucose 101 mg/dL (70-99); Osmolality Calculated 284 mOsm/kg (285-295); Potassium 3.9 mmol/L (3.5-5.1); Sodium 138 mmol/L (136-145)
[2021-05-21 06:08] LABS: Hematocrit 34.1 % (35.0-42.0); Hemoglobin 10.9 g/dL (11.7-13.8); Mean Corpuscular Hemoglobin 32.9 pg (27.0-31.0); Mean Platelet Volume 10.2 fl (9.2-11.8); Platelet Count Result 245 K/mm3 (150-420); Red Blood Count 3.31 M/mm3 (4.20-5.40); Red Cell Distribution Width 12.1 % (11.6-14.4); White Blood Count 8.3 K/mm3 (4.8-10.8)
[2021-05-21 06:11] LABS: Carbon Dioxide > 45 mmol/L (21-32)
[2021-05-21] MEDS: SALMET XINAFT/FLUTIC PROPIN 500 MCG/50 MCG INH CAP 1 PUFF INHALATION (07:00)
[2021-05-21] MEDS: predniSONE 20 MG TABLET 40 MG PO (08:58)
[2021-05-21] MEDS: THEOPHYLLINE ANHYDROUS 100 MG CAP.ER.24H 200 MG PO (08:58)
[2021-05-21] MEDS: LOSARTAN POTASSIUM 50 MG TABLET 100 MG PO (08:59)
[2021-05-21] MEDS: amLODIPine BESYLATE 5 MG TABLET 10 MG PO (08:59)
[2021-05-21] MEDS: UMECLIDINIUM BROMIDE 62.5 MCG ELLIPTA 1 PUFF INHALATION (09:00)
--- NOTE | 2021-05-21 10:37 | PM.DS ---
DS: Admitting Diagnosis Discharge Date 05/21/21 Admitting Diagnosis copd exacerbation DS: Discharge Diagnosis Discharge Diagnosis (1) COPD with exacerbation: Code(s): J44.1 - Chronic obstructive pulmonary disease with (acute) exacerbation Status: Acute Assessment and Plan: Supplemental Oxygen, Prednisone, Advair, DuoNeb, Theophylline, Incruse Ellipta, monitor respiratory status, incentive spirometer and flutter valve. Day of discharge. Patient will discharge to a jail (2) Chronic hypercapnic respiratory failure: Code(s): J96.12 - Chronic respiratory failure with hypercapnia Status: Acute Assessment and Plan: ABGs since August 2020 have shown pCO2 elevated up to 147 as Pt presents to the ER. The best pCO2 was 64.6 over the last year. Pt quit smoking about 9 years ago. patient will discharge to a jail (3) Chronic hypoxemic respiratory failure: Code(s): J96.11 - Chronic respiratory failure with hypoxia Status: Acute Assessment and Plan: Supplemental oxygen, result of end stage COPD, Pt unable to perform activities of daily living and requests return to the jail. Forming Machine Tender on board. (4) Weakness: Code(s): R53.1 - Weakness Status: Acute Assessment and Plan: Physical deconditioning as a result of end stage COPD Patient will discharge to a jail (5) Edema of both lower extremities: Code(s): R60.0 - Localized edema Status: Acute Assessment and Plan: Minimal, Pt states this has resolved a good bit. Will monitor Resolved (6) Hypertension: Qualifiers: Hypertension type: unspecified Qualified Code(s): I10 - Essential (primary) hypertension Code(s): I10 - Essential (primary) hypertension Status: Chronic Assessment and Plan: Continue Norvasc, Cozzar, Cardizem, monitor Vs and make changes or additions to medications as needed. Stable discharge DS: Summary Hospital Course Reason for hospitalization: Peyton Mercedes is a 65 year old female admitted under Observation for Chronic Hypoxemic Respiratory Failure and Hypercapnic Respiratory Failure related to her COPD. Pt was discharged from a jail back to her home. Once Pt was back home she did not fair very well. Peyton explains that it took her 3 hours to unpack her backs from the jail. She was unable to stand long enough to fix herself meals. With the simplest activities she would become short of breath. Pt states she wants to go back to the jail as she is unable to perform activities of daily living any more on her own. Patient will discharge to a jail. She remains short of breath which is chronic for her. The patient denies CP, palpitation, extremity numbness, lightheadedness, dizziness, constipation, diarrhea, chills, or fever. Hospital Course: Peyton Mercedes is a 65 year old female admitted under Observation for Chronic Hypoxemic Respiratory Failure and Hypercapnic Respiratory Failure related to her COPD. Pt was discharged from a jail back to her home. Once Pt was back home she did not fair very well. Peyton explains that it took her 3 hours to unpack her backs from the jail. She was unable to stand long enough to fix herself meals. With the simplest activities she would become short of breath. Pt states she wants to go back to the jail as she is unable to perform activities of daily living any more on her own. Patient will discharge to a jail. She remains short of breath which is chronic for her. The patient denies CP, palpitation, extremity numbness, lightheadedness, dizziness, constipation, diarrhea, chills, or fever. Time Spent with Patient Time attestation: Total time spent providing and/or coordinating discharge services: DS: Data Data Completed and Pending Labs on day of discharge: Labs from last 24 hours 05/21/21 05/21/21 05/21/21 05:29 05:29 05:29 WBC
--- NOTE | 2021-05-21 13:00 | PC.NURSE ---
Report on patient called to Alivia at [facility].
--- NOTE | 2021-05-21 14:40 | PC.NURSE ---
All discharge instructions and education sent with patient to [facility]. shelter aid here to transport patient back to [facility]. IV site removed, tip intact. Dressing applied to site. All belongings and medication gathered and sent with patient. Patient left floor via wheelchair escorted by snf aid.
== END 2021-05-21 14:40 ==
LOC: CHSED 19:45 → CHS2ND 20:02
PROVIDERS: Nurse Practitioner Family; Admitting Provider Emergency Medicine; Emergency Provider Emergency Medicine; PCP Family Medicine; Visit Provider Emergency Medicine
DX: J44.1 Chronic obstructive pulmonary disease with (acute) exacerbation (principal); J96.12 Chronic respiratory failure with hypercapnia; J96.11 Chronic respiratory failure with hypoxia; I10 Essential (primary) hypertension; Z20.822 Contact with and (suspected) exposure to COVID-19; Z99.81 Dependence on supplemental oxygen; Z87.891 Personal history of nicotine dependence
CPT/HCPCS: 36415; 36600; 71046; 80048; 80053; 81001; 82805; 83605; 83735; 83880; 84484; 85025; 85027; 87040; 93005; 93306; 94640; 94667; 96374; 96375; 97161; 97165; 99285; A9270; C9803; G0378; J1940; J2920; J7512; U0003; U0005